=== PATIENT | female | born 1970 | race Caucasian/White ===

== ENCOUNTER 2019-12-20 09:45 | Outpatient (CLI) | payer OTHER, SELFPAY ==
--- NOTE | ~2019-12-20 | XR_ITS ---
EXAMINATION: XR shoulder RT min 2V, XR humerus RT DATE: 12/20/2019 10:13 INDICATION: Right upper arm pain TECHNIQUE: 1. AP internally and externally rotated, AP oblique externally rotated and transscapular Y views of t he right shoulder were obtained. 2. Internally and axillary rotated views of the right humerus were obtained. COMPARISON: 01/23/2019 FINDINGS: Normal alignment. No fracture. Mild glenohumeral osteoarthritis with inferior predominant nonuniform joint space narrowing which is increased since the prior study. Mild acromioclavicular osteoarthriti s with mild cephalad predominant hypertrophic change as well as small loose body versus heterotopic o ssicle at the cephalad margin of the joint space. Joint spaces at the right elbow are suboptimally pr ofiled but appear relatively preserved. Soft tissues are unremarkable. Visualized portions of the rig ht lung are clear. IMPRESSION: Mild glenohumeral and acromioclavicular osteoarthritis. No acute osseous abnormality. Reviewed, dictated and finalized at location A. IMPRESSION: Mild glenohumeral and acromioclavicular osteoarthritis. No acute osseous abnorm ality.
== END 2019-12-20 09:46 | disposition home or self-care (01) ==
PROVIDERS: PCP Nurse Practitioner Family; Visit Provider Nurse Practitioner Family
DX: S49.91XA Unspecified injury of right shoulder and upper arm, initial encounter (principal)
CPT/HCPCS: 73030; 73060

== ENCOUNTER 2019-12-26 10:51 | Outpatient (CLI) | payer OTHER, SELFPAY ==
--- NOTE | ~2019-12-26 | MR_ITS ---
EXAMINATION: MR shoulder RT wo con DATE: 12/26/2019 12:07 INDICATION: Right arm and shoulder pain TECHNIQUE: Magnetic resonance imaging (MRI) of the right shoulder was performed without intravenous c ontrast. Sequences included axial PD-weighted FS FSE, coronal oblique PD-weighted FS FSE, coronal obl ique T2-weighted FS FSE, sagittal PD-weighted FS FSE, and sagittal T1-weighted SE. COMPARISON: None. FINDINGS: Evaluation mildly limited by motion artifact or blurring to some degree on all sequences. Coracoacromial arch: The acromion undersurface is curved in morphology (type II). The coracoacromial ligament is normal. M ild acromioclavicular osteoarthritis. Rotator cuff: Mild supraspinatus and infraspinatus tendinopathy. Small full-thickness tear along the superior facet footplate of the distal supraspinatus tendon measuring 4 mm AP and 6 mm medial to lateral the teres minor tendon is normal. Mild subscapularis tendinopathy without discrete tear. Normal rotator cuff mu scle bulk and signal. Biceps tendon, glenoid labrum and glenohumeral cartilage: Full-thickness tear likely along the intra-articular portion of the long head biceps tendon with the still tear margin retracted approximately 4 cm below the level of the intertubercular groove. The sup erior labrum as well as the anteroinferior and inferior labrum appears thickened with amorphous incre ased signal consistent with degenerative tearing. The intervening anterior and posterior labrum appea rs to remain intact. Partial-thickness cartilage loss along the glenoid with small region of deep fis suring with subarticular edema along the inferior glenoid. Additional partial thickness cartilage los s without degenerative subchondral changes along the medial aspect of the humeral head. Fluid: Physiologic amount of fluid in the glenohumeral joint. There is fluid within the long head biceps ten don sheath with additional epimysial edema extending peripherally about the short head of the biceps muscle belly. No loose osteochondral bodies. Small amount of fluid and synovitis in the subacromial/s ubdeltoid bursa consistent with mild bursitis. Bones: Bone alignment is normal. No fracture or pathologic marrow replacing process. IMPRESSION: 1. Full-thickness tear and distal retraction of the intra-articular long head biceps tendon with incr eased fluid in the tendon sheath extending around the periphery of the short head of the biceps muscl e suggesting relatively recent injury. 2. Mild rotator cuff tendinopathy with small full-thickness supraspinatus tendon tear. 3. Mild glenohumeral osteoarthritis with high-grade chondromalacia at the inferior glenoid and degene rative tearing of the superior, anteroinferior and inferior glenoid labrum. 3. Mild acromioclavicular osteoarthritis. 4. Mild subacromial/subdeltoid bursitis. Reviewed, dictated and finalized at location B. IMPRESSION: 1. Full-thickness tear and distal retraction of the intra-articular long head b iceps tendon with increased fluid in the tendon sheath extending around the per iphery of the short head of the biceps muscle suggesting relatively recent inju ry. 2. Mild rotator cuff tendinopathy with small full-thickness supraspinatus tendo n tear. 3. Mild glenohumeral osteoarthritis with high-grade chondromalacia at the infer ior glenoid and degenerative tearing of the superior, anteroinferior and inferi or glenoid labrum. 3. Mild acromioclavicular osteoarthritis. 4. Mild subacromial/subdeltoid bursitis.
== END 2019-12-26 10:52 | disposition home or self-care (01) ==
LOC: CHSIMG 10:52
PROVIDERS: PCP Nurse Practitioner Family; Visit Provider Nurse Practitioner Family
DX: S49.91XA Unspecified injury of right shoulder and upper arm, initial encounter (principal); S46.219A Strain of muscle, fascia and tendon of other parts of biceps, unspecified arm, initial encounter
CPT/HCPCS: 73221

== ENCOUNTER 2020-10-25 07:52 | Outpatient (CLI) | payer OTHER, SELFPAY ==
--- NOTE | ~2020-10-25 | US_ITS ---
EXAMINATION: US abdomen limited DATE: 10/25/2020 08:18 INDICATION: Left lower quadrant abdominal pain. TECHNIQUE: Multiple grayscale and Doppler ultrasound images of the left and right lower quadrants of the abdomen were obtained. COMPARISON: None FINDINGS: At the left lower quadrant area of concern there is a 4.3 x 2.1 x 2.2 cm mixed hypoechoic and anechoi c complex cystic mass with lobular margins centered within which appears to be the left rectus abdomi nis muscle. Normal underlying peristalsing bowel in the left and right lower quadrants. IMPRESSION: 1. 4.3 x 2.1 x 2.2 cm complex cystic mass within the left rectus abdominis muscle. Differential would include hematoma, abscess in the appropriate clinical setting or neoplasm either benign or malignant . Correlate with clinical history and could consider sonographic guided percutaneous biopsy/aspiratio n as clinically indicated. Reviewed, dictated and finalized at location A. IMPRESSION: 1. 4.3 x 2.1 x 2.2 cm complex cystic mass within the left rectus abdominis musc le. Differential would include hematoma, abscess in the appropriate clinical se tting or neoplasm either benign or malignant. Correlate with clinical history a nd could consider sonographic guided percutaneous biopsy/aspiration as clinical ly indicated.
== END 2020-10-25 07:53 | disposition home or self-care (01) ==
LOC: CHSIMG 07:53
PROVIDERS: PCP Physician Assistant; Visit Provider Nurse Practitioner Family
DX: R10.32 Left lower quadrant pain (principal)
CPT/HCPCS: 76705

== ENCOUNTER 2020-11-08 10:25 | Outpatient (CLI) | payer OTHER, SELFPAY ==
--- NOTE | ~2020-11-08 | US_ITS ---
EXAMINATION: US biopsy st muscle DATE: 11/08/2020 11:02 INDICATION: Mass in left rectus abdominis muscle. TECHNIQUE: The procedure including the risks, benefits, and alternatives was discussed with the patie nt. Risks discussed included bleeding and infection. The patient understood the risks and agreed to p roceed. The skin overlying the left abdomen was prepped and draped in usual sterile fashion. Anesthe tic was administered with 1% lidocaine subcutaneously. An 18 gauge core biopsy needle was then used to obtain 3 core biopsy specimens under continuous sonographic guidance. The entry site was cleaned a nd dressed. There were no immediate complications. FINDINGS: Ultrasound images demonstrate the needle in a 3.5 cm hypoechoic mass in left rectus abdomin is muscle. IMPRESSION: 1. Ultrasound-guided core needle biopsy of a 3.5 cm mass in left rectus abdominis muscle. Reviewed, dictated and finalized at location A. IMPRESSION: 1. Ultrasound-guided core needle biopsy of a 3.5 cm mass in left rectus abdomin is muscle.
== END 2020-11-08 10:26 | disposition home or self-care (01) ==
PROVIDERS: PCP Physician Assistant; Visit Provider Physician Assistant
DX: R19.05 Periumbilic swelling, mass or lump (principal)
CPT/HCPCS: 20206; 76942; 88305; 88342

== ENCOUNTER 2020-12-06 07:39 | Outpatient (CLI) | payer OTHER, SELFPAY ==
--- NOTE | 2020-12-06 07:42 | ECG_ITS ---
Measurements Intervals Ashley Rate: 65 P: 57 OH: 143 QRS: 53 QRSD: 85 T: 11 QT: 375 QTc: 392 Interpretive Statements SINUS RHYTHM BORDERLINE R WAVE PROGRESSION, ANTERIOR LEADS NONSPECIFIC T-WAVE ABNORMALITY- INFERIOR LEADS BASELINE WANDER- V6 BORDERLINE ECG Electronically Signed On 12-06-2020 8:09:51 CDT by Federico Olvear D.O.
== END 2020-12-06 07:40 | disposition home or self-care (01) ==
LOC: ANHSURGERY 07:40
PROVIDERS: PCP Physician Assistant; Visit Provider Surgery
DX: Z01.810 Encounter for preprocedural cardiovascular examination (principal); E78.5 Hyperlipidemia, unspecified
CPT/HCPCS: 93005

== ENCOUNTER 2020-12-09 03:20 | Day surgery (SDC) | payer OTHER, SELFPAY ==
[2020-12-04 09:22] VITALS: BMI 23.6
[2020-12-09] VITALS (8 sets, daily range): BP systolic 117–149; BP diastolic 68–100; PULSE 62–71; RESP 14–18; TEMP 36.1–36.7; O2SAT 97–100; BMI 24.8
--- NOTE | 2020-12-09 11:31 | SUR.PREOP ---
1015; PT SLEEPING. 1130; PT AWAKE, CALLED TO ROOM. NOTIFIED OF 90 MINUTE DELAY.
--- NOTE | 2020-12-09 11:48 | WPDHPUPDATE1 ---
History and Physical Update Update Date/Time: 12/09/20 11:48 History and Physical has been reviewed, including an updated exam of the patient. There are NO changes in the patient's condition. Risks, benefits, and alternatives have been discussed and questions answered. Patient agrees to proceed with procedure.
--- NOTE | 2020-12-09 11:54 | WPDANESEPPF ---
Anes - Initial Pre Proc Eval Procedure: Operation Date: 12/09/20 10:30 Proposed Procedures p Excision of Left Rectus Muscle Mass - Armen Mcneill MD Date/Time: 12/09/20 11:54 Surgeon: Armen Mcneill MD Pre Op Diagnosis: Left Rectus muscle mass Patient Data Age: 50 Gender: F Height: 1.64 m Weight: 67.3 kg Last Vital Signs Temp 97.9 F 12/09/20 09:28 Pulse 68 12/09/20 09:28 Resp 18 12/09/20 09:28 BP 149/100 H 12/09/20 09:28 Pulse Ox 97 12/09/20 09:28 Allergies Allergy/AdvReac Type Severity Reaction Status Date / Time diazepam AdvReac Unknown Nausea Verified 12/09/20 08:44 Home Medications Medication Instructions Recorded Confirmed Type gabapentin 300 mg capsule 300 mg PO QID cap 06/08/19 12/09/20 History meloxicam 7.5 mg tablet 7.5 mg PO DAILY 09/18/20 12/04/20 History famotidine 10 mg tablet 10 mg PO DAILY 11/22/20 12/04/20 History oxcarbazepine 300 mg tablet 300 mg PO DAILY 11/22/20 12/09/20 History venlafaxine 150 mg 150 mg PO HS 11/22/20 12/04/20 History capsule,extended release 24 hr atorvastatin 40 mg PO DAILY 12/04/20 12/04/20 History hydroxyzine HCl 50 mg PO BID 12/04/20 12/04/20 History montelukast 10 mg PO DAILY 12/04/20 12/04/20 History omeprazole 20 mg PO DAILY 12/04/20 12/09/20 History acetaminophen [Tylenol] 325 mg PO ONCE PRN 12/09/20 12/09/20 History Patient hx anesthesia problems: none Family hx anesthesia problems: none PMFSH Past Medical History Medical History (Updated 11/26/20 @ 14:30 by Marilu Salgado) Cervical cancer Depression GERD (gastroesophageal reflux disease) History of blood clots Hypercholesterolemia Hyperlipidemia Low back pain Sleep apnea, unspecified Surgical History Surgical History (Updated 11/26/20 @ 14:30 by Marilu Salgado) H/O hemorrhoidectomy H/O inguinal hernia repair History of History of carpal tunnel surgery History of endometrial ablation Hx of hysterectomy Age 32 S/P tonsillectomy and adenoidectomy Family History Family History Father Family history of atrial fibrillation Hypertension Mother Family history of atrial fibrillation Asthma Depression Sibling Asthma Other Asthma Grandparent Cancer Hypertension Heart disease Cerebrovascular accident Grandparent Cancer Diabetes mellitus Hypertension Heart disease Other Family history of malignant neoplasm Family history of type 2 diabetes mellitus Social History Social History Social History: caffeine use: coffee Smoking status: Former smoker Tobacco type: cigarettes Smoking end date: 04/26/12 Additional smoking assessment comments: SOCIAL SMOKER 30 YRS Alcohol intake: never Substance use type: marijuana Other substance usage details: DAILY IN EVENING Living arrangements: alone 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 Questions were solicited and answers provided to the satisfaction of the patient/family/POA.
[2020-12-09] MEDS: LACTATED RINGERS 1,000 ML 30 ML IV CONT ×2 (11:57→13:46)
[2020-12-09] MEDS: BUPIVACAINE/EPINEPHRINE 0.5% 10 ML VIAL 13 ML INFILTRATE (13:37)
--- NOTE | 2020-12-09 14:03 | W.PM.PROC2 ---
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 Benign hemosiderin-laden CIS cells obtained. Description of Procedure The patient was brought to the operating room placed in supine position. After induction of adequate general LMA anesthesia by [place] anesthesia we proceeded with a careful prep and drape of abdomen in standard fashion exposing the mid abdomen. Following this time-out was performed with surgery team confirming patient and site of surgery being the mid abdominal wall. Prior to scrubbing and I carefully reviewed the ultrasound images stored in the computer patient's previous ultrasound-guided core biopsy. Following this the operative ultrasound machine was brought onto the field using the wide probe in a sterile sheath and the area marked with the patient preoperatively was carefully examined with ultrasound. Since she had previously had an ultrasound biopsy and a 3 x 2 cm mass in the Left rectus muscle a month or 2 ago, I carefully examined the area of the previous biopsy from the level of the umbilicus dowm to about 5 cm below the umbilicus thoroughly. We could nicely see subcutaneous tissues rectus sheath the interposed muscle and also see some peristalsing bowel inferior to the posterior rectus sheath. The only lesion that could be seen with in the rectus muscle in this area, was then carefully marked by placing a little bit of local anesthetic into the skin followed by a 22 gauge needle not on a syringe inserted by US guidance extending it's tip down and into the suspected lesion. We watched this go from the skin slightly inferior to the lesion through the subcutaneous tissues and into the apparent mass noted on intraoperative ultrasound. Then I put the ultrasound probe away and I instilled more local along the proposed line of incision. I then made an incision slightly superior to the entry site of the 22 gauge needle. This was about 6 - 7 cm in length transversely and was approximately 3-4 cm inferior to the level of the umbilicus. It was carried down with Bovie cautery through the subcutaneous tissues until we exposed the anterior rectus sheath. I could then see a little bit of the needle coming through the subcutaneous tissues and entering the anterior rectus fascia. I then made an incision in the anterior rectus fascia and followed the needle into the muscle itself. There was no easily palpable mass within the muscle at the tip of the needle. All the tissue at the tip including some muscle was grasped with 2 Allis's and excised. It appeared to be fibrotic scar. I then carefully elevated the anterior rectus sheath in both directions and palpated the rectus muscle for 3 cm above and 3 cm below the site of this excision. No other palpable masses were found within the muscle or beneath muscle along the posterior rectus sheath. There was a small muscular arterial bleeder that would not stop with just cautery so I then obtained and used some small vascular titanium clips to stop the bleeding. Therefore, after the above exploration, I felt I had thoroughly explored the Left rectus sheath in the area of the suspected abnormality. There is the possibility that the lesion seen previously on ultrasound and biopsied has scarred in further and is now not as large as it was originally or when biopsied a couple of months ago. During the excision, in order to be able to tell in the future by imaging where I did the excision, I used some of the small titanium clips and outlined the the area of excision by placing 2 or 3 within the left rectus mus
[2020-12-09] MEDS: fentaNYL CITRATE INJ (*CRX) 100 MCG/2 ML VIAL 25 MCG IV PUSH ×2 (14:25→14:31)
== END 2020-12-09 15:26 | disposition home or self-care (01) ==
PROVIDERS: PCP Physician Assistant; Visit Provider Surgery
PROC: (CPT 22901; principal; 2020-12-09 10:30)
DX: M79.89 Other specified soft tissue disorders (principal); Z85.41 Personal history of malignant neoplasm of cervix uteri; F32.9 Major depressive disorder, single episode, unspecified; K21.9 Gastro-esophageal reflux disease without esophagitis; E78.5 Hyperlipidemia, unspecified; E78.00 Pure hypercholesterolemia, unspecified; G47.30 Sleep apnea, unspecified; Z87.891 Personal history of nicotine dependence; F12.90 Cannabis use, unspecified, uncomplicated; Z86.718 Personal history of other venous thrombosis and embolism
CPT/HCPCS: 22901; 76937; 88304; J1100; J2250; J2405; J2704; J3010; J7120

== ENCOUNTER 2020-12-25 07:40 | Outpatient (CLI) | payer OTHER, SELFPAY ==
--- NOTE | ~2020-12-25 | MM_ITS ---
EXAMINATION: MM screening [facility] w [facility] HISTORY: Screening TECHNIQUE: Craniocaudal and mediolateral oblique 3-D tomosynthesis images were obtained and synthetic 2-D images were generated. CAD analysis was submitted and interpreted. COMPARISON: No prior mammogram is available for comparison at this institution. BREAST PARENCHYMAL COMPOSITION: The breasts are extremely dense, which lowers the sensitivity of mamm ography. FINDINGS: There is no evidence of suspicious mass, calcification, or architectural distortion to sugg est malignancy in either breast. There has been no suspicious interval change. IMPRESSION: 1. No mammographic evidence of malignancy. 2. Recommend routine screening mammography in one year. BI-RADS Category 1: Negative Reviewed, dictated and finalized at location A.
== END 2020-12-25 07:41 | disposition home or self-care (01) ==
LOC: ANHIMG 07:41
PROVIDERS: PCP Physician Assistant; Visit Provider Obstetrics & Gynecology
DX: Z12.31 Encounter for screening mammogram for malignant neoplasm of breast (principal)
CPT/HCPCS: 77063; 77067

== ENCOUNTER 2021-03-16 11:56 | Emergency (ER) | payer OTHER, SELFPAY ==
--- NOTE | ~2021-03-16 | US_ITS ---
EXAMINATION: US venous doppler [facility] EXAM DATE: 03/16/2021 14:24 INDICATION: Left leg swelling. TECHNIQUE: Multiple grayscale, color flow and Doppler images of the left lower extremity deep venous system were obtained and reviewed. There is no prior study for comparison. FINDINGS: The left common femoral, femoral and profunda veins demonstrate normal color flow, respirat ory variation, augmentation and compressibility. Compressibility, color flow confirmed within the le ft popliteal, posterior tibial, peroneal, and greater saphenous veins. IMPRESSION: 1. No left lower extremity deep venous thrombosis. 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
[2021-03-16 12:07] VITALS: BP 136/79; PULSE 76; RESP 16; TEMP 36.4; O2SAT 100
--- NOTE | 2021-03-16 13:31 | ED.LOWEXIN ---
HPI - Extremity Injury (Lower) General Chief Complaint: Extremity Injury, Lower Stated Complaint: left leg is purplex 4 days Time Seen by Provider: 03/16/21 13:26 Source: patient Mode of arrival: ambulatory Limitations: no limitations History of Present Illness HPI Narrative: Patient is a 51-year-old female complaining of left leg swelling that started yesterday. Patient states that initially he had left knee with swelling which is now resolved and today her left leg is swelling. Patient states that she was on her knees for a little more than an hour yesterday, painting. 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 Patient denies any injury to the area. Patient denies cold extremity. Patient denies any chest pain, shortness of breath, fever or chills. Related Data Home Medications Medication Instructions Recorded Confirmed gabapentin 300 mg capsule 300 mg PO QID cap 06/08/19 12/09/20 meloxicam 7.5 mg tablet 7.5 mg PO DAILY 09/18/20 12/04/20 famotidine 10 mg tablet 10 mg PO DAILY 11/22/20 12/04/20 oxcarbazepine 300 mg tablet 300 mg PO DAILY 11/22/20 12/09/20 venlafaxine 150 mg 150 mg PO HS 11/22/20 12/04/20 capsule,extended release 24 hr atorvastatin 40 mg PO DAILY 12/04/20 12/04/20 hydroxyzine HCl 50 mg PO BID 12/04/20 12/04/20 montelukast 10 mg PO DAILY 12/04/20 12/04/20 omeprazole 20 mg PO DAILY 12/04/20 12/09/20 acetaminophen [Tylenol] 325 mg PO ONCE PRN 12/09/20 12/09/20 Allergies Allergy/AdvReac Type Severity Reaction Status Date / Time diazepam AdvReac Unknown Nausea Verified 03/16/21 12:09 Review of Systems Review of Systems: All systems reviewed & are unremarkable except as noted in HPI and below Constitutional: Constitutional: Denies body ache(s), Denies chills, Denies excessive sweating, Denies fatigue, Denies fever(s), Denies headache(s), Denies lethargy, Denies malaise, Denies weakness and Denies weight loss Eyes: Eyes: Denies blurry vision, Denies change in vision and Denies loss of vision ENT: Denies dizziness, Denies ear discharge, Denies headache(s), Denies lip swelling, Denies epistaxis, Denies nasal congestion, Denies neck pain, Denies throat swelling and Denies tongue swelling Cardiovascular: Cardiovascular: Denies chest pain, Denies chest pain at rest, Denies chest pain with activity, Denies diaphoresis, Denies rapid heart rate, Denies edema, Denies irregular heart rhythm, Denies lightheadedness, Denies palpitations, Denies dyspnea and Denies dyspnea on exertion Respiratory: Respiratory: Denies chest congestion, Denies cough, Denies hemoptysis, Denies dyspnea and Denies dyspnea on exertion Gastrointestinal: Gastrointestinal: Denies abdominal pain, Denies melena, Denies hematochezia, Denies diarrhea, Denies nausea, Denies vomiting and Denies hematemesis Musculoskeletal: Musculoskeletal: Denies abnormal gait, Denies deformity, Denies joint swelling, Denies limited range of motion, Denies neck pain and Denies numbness Neurologic: Denies Abnormal speech present, Denies abnormal gait, Denies confusion, Denies dizziness, Denies headache(s), Denies focal weakness, Denies loss of vision, Denies numbness, Denies Other visual disturbances, Denies Sensory deficit (Neuro) and Denies weakness Psychiatric: Psychiatric: Denies confusion, Denies depression, Denies auditory hallucinations, Denies homicidal ideation and Denies suicidal ideation Endocrine: Endocrine: Denies cold intolerance, Denies excessive sweating, Denies fatigue, Denies heat intolerance and Denies palpitations Hematologic/Lymphatic: Hematologic/Lymphatic: Denies easy bleeding and Denies easy bruising Allergic/Immunologic: Allergic/Immunologic: Denies lip swelling, Denies throat swelling and Denies tongue swelling PMFSH Past Medical History Medical History Cervical cancer Depression GERD (gastroesophageal reflux disease) History of blood clots Hypercholesterolemi
[2021-03-16 14:00] LABS: Basophils Percent Auto 0.5 % (0.2-1.2); Eosinophils Absolute Auto 0.1 K/mm3 (0-0.3); Eosinophils Percent Auto 0.6 % (0-4.4); Hematocrit 39.4 % (37.0-47.0); Hemoglobin 13.4 g/dL (12.0-15.0); Immature Granulocyte Absolute 0.02 K/mm3 (0.00-0.031); Immature Granulocyte Percent A 0.2 % (0-0.5); Lymphocytes Absolute Auto 2.14 K/mm3 (0.9-3.2); Lymphocytes Percent Auto 25.4 % (18.3-44.2); Mean Corpuscular Hemoglobin 31.8 pg (26-34); Mean Corpuscular Volume 93.4 fl (80-100); Monocytes Absolute Auto 0.6 K/mm3 (0.1-0.6); Monocytes Percent Auto 6.7 % (2.6-8.5); Neutrophils Absolute Auto 5.6 K/mm3 (1.3-6.7); Neutrophils Percent Auto 66.6 % (45.5-73.1); Platelet Count Result 307 k/mm3 (150-375); Red Blood Count 4.22 M/mm3 (4.2-5.4); Red Cell Distribution Width 13.2 % (11.5-14.5); White Blood Count 8.4 K/mm3 (4.5-10.0)
[2021-03-16 14:01] VITALS: BP 146/113; PULSE 74; RESP 16; O2SAT 99
[2021-03-16 14:16] LABS: Alanine Aminotransferase 37 U/L (4-35); Albumin Level 4.1 g/dL (3.5-5.1); Alkaline Phosphatase 51 U/L (38-126); Anion Gap 5 mmol/L (8-16); Aspartate Amino Transferase 44 U/L (14-36); Bilirubin,Total 0.4 mg/dL (0.2-1.3); Blood Urea Nitrogen 20 mg/dL (7-17); Calcium 9.2 mg/dL (8.4-10.2); Carbon Dioxide 28 mmol/L (22-30); Chloride 101 mmol/L (98-107); Estimated CRCL calculation 75 ml/min; Estimated Glomerular Filt Rate > 60; Glucose 91 mg/dL (65-110); Potassium 4.1 mmol/L (3.4-5.0); Sodium 134 mmol/L (137-145)
[2021-03-16 15:02] VITALS: BP 146/90; PULSE 82; RESP 16; O2SAT 100
== END 2021-03-16 15:13 | disposition home or self-care (01) ==
PROVIDERS: Emergency Provider Emergency Medicine; PCP Physician Assistant
DX: M79.89 Other specified soft tissue disorders (principal); E78.5 Hyperlipidemia, unspecified; G47.30 Sleep apnea, unspecified; K21.9 Gastro-esophageal reflux disease without esophagitis; F32.A Depression, unspecified; Z85.41 Personal history of malignant neoplasm of cervix uteri; Z87.891 Personal history of nicotine dependence
CPT/HCPCS: 36415; 80053; 85025; 93971; 99284

== ENCOUNTER 2021-04-11 10:50 | Outpatient (CLI) | payer OTHER, SELFPAY ==
--- NOTE | ~2021-04-11 | XR_ITS ---
EXAMINATION: XR knee LT 3V DATE: 04/11/2021 11:04 INDICATION: Left knee pain and swelling TECHNIQUE: Three views of the left knee were obtained. COMPARISON: None. FINDINGS: Alignment is normal. No fracture or osteochondral lesion. There is mild tricompartmental os teoarthritis characterized by tiny marginal osteophytes. No joint effusion/synovitis. Soft tissues a re unremarkable. IMPRESSION: 1. Mild osteoarthritis Reviewed, dictated and finalized at location A. 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 Mild osteoarthritis
== END 2021-04-11 10:51 | disposition home or self-care (01) ==
LOC: CHSIMG 10:51
PROVIDERS: PCP Physician Assistant; Visit Provider Physician Assistant
DX: M25.562 Pain in left knee (principal)
CPT/HCPCS: 73562

== ENCOUNTER 2022-10-23 13:11 | Outpatient (CLI) | payer OTHER, SELFPAY ==
--- NOTE | ~2022-10-23 | MM_ITS ---
EXAMINATION: MM screening [facility] BI w [facility] HISTORY: Screening mammogram TECHNIQUE: Craniocaudal and mediolateral oblique 3-D tomosynthesis images were obtained and synthetic 2-D images were generated. CAD analysis was submitted and interpreted. COMPARISON: 12/25/2020 bilateral screening mammogram BREAST PARENCHYMAL COMPOSITION: There are scattered areas of fibroglandular density. FINDINGS: There is no evidence of suspicious mass, calcification, or architectural distortion to sugg est malignancy in either breast. There has been no suspicious interval change. IMPRESSION: 1. No mammographic evidence of malignancy. 2. Recommend routine screening mammography in one year. BI-RADS Category 1: Negative Reviewed, dictated and finalized at location A.
== END 2022-10-23 13:12 | disposition home or self-care (01) ==
LOC: CHSIMG 13:13
PROVIDERS: PCP Physician Assistant; Visit Provider Physician Assistant
DX: Z12.31 Encounter for screening mammogram for malignant neoplasm of breast (principal)
CPT/HCPCS: 77063; 77067

== ENCOUNTER 2023-01-13 10:46 | Emergency (ER) | payer OTHER, SELFPAY ==
[2023-01-13 10:47] VITALS: BP 126/91; PULSE 80; RESP 19; TEMP 36.7; O2SAT 99
--- NOTE | 2023-01-13 10:55 | ED.GENADULT ---
HPI - General Adult General Chief complaint: Unspecified Stated complaint: Blood Pressure Time Seen by Provider: 01/13/23 10:54 Source: patient and RN notes reviewed Mode of arrival: ambulatory Limitations: no limitations History of Present Illness HPI narrative: patient states she has had some episodes of dizziness since yesterday. She was moving a ladder and became short of breath. She has some occasional nausea headache. She says she just does not feel right . Her blood pressure has been elevated mostly diastolic. She brings in pictures of the blood pressure cuff that she has been using with the readings on it. She does take losartan for her high blood pressure. She denies any fever chills or cough. She denies any chest pain lower extremity calf pain. She just wants to be checked out make sure everything is okay. Onset (ago): day(s) (2) Associated symptoms: headaches, malaise, nausea/vomiting ( no vomiting), shortness of breath ( With exertion) and other ( dizziness) Treatments prior to arrival: none Related Data Home Medications Medication Instructions Recorded Confirmed gabapentin 300 mg capsule 300 mg PO QID 06/08/19 01/13/23 meloxicam 7.5 mg tablet 7.5 mg PO DAILY 09/18/20 01/13/23 famotidine 10 mg tablet 10 mg PO DAILY 11/22/20 01/13/23 oxcarbazepine 300 mg tablet 300 mg PO DAILY 11/22/20 01/13/23 venlafaxine 150 mg 150 mg PO HS 11/22/20 01/13/23 capsule,extended release 24 hr (Effexor XR) atorvastatin 40 mg tablet 40 mg PO DAILY 12/04/20 01/13/23 hydroxyzine HCl 50 mg tablet 50 mg PO BID 12/04/20 01/13/23 montelukast 10 mg tablet 10 mg PO DAILY 12/04/20 01/13/23 omeprazole 20 mg capsule,delayed 20 mg PO DAILY 12/04/20 01/13/23 release acetaminophen 325 mg capsule 325 mg PO ONCE PRN pain 12/09/20 01/13/23 (Tylenol) Allergies Allergy/AdvReac Type Severity Reaction Status Date / Time diazepam AdvReac Unknown Nausea Verified 03/16/21 12:09 [facility] Past Medical History Medical History Cervical cancer Depression GERD (gastroesophageal reflux disease) History of blood clots Hypercholesterolemia Hyperlipidemia Low back pain Sleep apnea, unspecified Surgical History Surgical History H/O hemorrhoidectomy H/O inguinal hernia repair History of History of carpal tunnel surgery History of endometrial ablation Hx of hysterectomy Age 32 S/P tonsillectomy and adenoidectomy Family History Family History Father Family history of atrial fibrillation Hypertension Mother Family history of atrial fibrillation Asthma Depression Sibling Asthma Other Asthma Grandparent Cancer Hypertension Heart disease Cerebrovascular accident Grandparent Cancer Diabetes mellitus Hypertension Heart disease Other Family history of malignant neoplasm Family history of type 2 diabetes mellitus Social History Social History Social History: caffeine use: coffee Smoking status: Former smoker Tobacco type: cigarettes Smoking end date: 04/26/12 Additional smoking assessment comments: SOCIAL SMOKER 30 YRS Alcohol intake: never Substance use type: marijuana Other substance usage details: DAILY IN EVENING Living arrangements: alone Occupation/Education: occupation 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 HENMT: Head: normal to inspection Ears: external ears normal Face/Nose/Sinus: Normal external nose present Face and sinus: normal facial exam Mouth: Yes moist mucous membranes Eyes: Conjuncti
--- NOTE | 2023-01-13 11:09 | ECG_ITS ---
Measurements Intervals [employer] Rate: 60 P: 47 NM: 161 QRS: 38 QRSD: 78 T: 11 QT: 387 QTc: 389 Interpretive Statements SINUS RHYTHM BORDERLINE R WAVE PROGRESSION, ANTERIOR LEADS MINIMAL Q WAVES- INFERIOR LEADS BORDERLINE ST-T WAVE ABNORMALITY- INFERIOR LEADS BORDERLINE ECG COMPARED TO ECG 12/06/2020 07:53:52 NO SIGNIFICANT CHANGES Electronically Signed On 01-13-2023 11:25:30 CDT by Federico Olvera D.O.
[2023-01-13 11:25] LABS: Basophils Absolute Auto 0.04 K/mm3 (0.00-0.10); Basophils Percent Auto 0.6 % (0.0-1.0); Eosinophils Absolute Auto 0.05 K/mm3 (0.02-0.50); Eosinophils Percent Auto 0.7 % (1.0-6.0); Hematocrit 44.3 % (35.0-49.0); Hemoglobin 14.7 g/dL (12.0-15.0); Immature Granulocyte Absolute 0.02 K/mm3 (0.00-0.00); Immature Granulocyte Percent A 0.3 % (0.0-0.0); Lymphocytes Absolute Auto 2.22 K/mm3 (1.10-4.50); Lymphocytes Percent Auto 32.2 % (18.0-42.0); Mean Corpuscular HGB Conc 33.2 g/dL (32.0-36.0); Mean Corpuscular Hemoglobin 30.5 pg (27.0-31.0); Mean Corpuscular Volume 91.9 fL (78.0-102.0); Mean Platelet Volume 9.4 fl (9.2-11.8); Monocytes Absolute Auto 0.43 K/mm3 (0.10-0.90); Monocytes Percent Auto 6.2 % (2.0-11.0); Neutrophils Absolute Auto 4.1 K/mm3 (1.7-7.2); Platelet Count Result 346 K/mm3 (150-420); Red Blood Count 4.82 M/mm3 (4.20-5.40); Red Cell Distribution Width 12.7 % (11.6-14.4); White Blood Count 6.9 K/mm3 (4.8-10.8)
[2023-01-13 11:44] VITALS: BP 119/93; PULSE 64; RESP 20; O2SAT 95
[2023-01-13 11:52] LABS: Influenza A QL RT-PCR Negative (Negative); Influenza B QL RT-PCR Negative (Negative); SARS-CoV-2 RNA PCR Negative (Negative)
[2023-01-13 11:53] LABS: Alanine Aminotransferase 26 U/L (14-59); Albumin Level 3.9 g/dL (3.4-5.0); Alkaline Phosphatase 45 U/L (46-116); Anion Gap 8 mmol/L (8-16); Aspartate Amino Transferase 16 U/L (15-37); Bilirubin,Total 0.3 mg/dL (0.00-1.00); Blood Urea Nitrogen 22 mg/dL (7-18); Calcium 9.6 mg/dL (8.5-10.1); Carbon Dioxide 29 mmol/L (21-32); Chloride 101 mmol/L (98-108); Estimated CRCL calculation 93 ml/min; Estimated Glomerular Filt Rate > 60; Glucose 93 mg/dL (70-99); Magnesium 1.9 mg/dL (1.8-2.4); Osmolality Calculated 289 mOsm/kg (285-295); Potassium 4.2 mmol/L (3.5-5.1); Sodium 138 mmol/L (136-145); Thyroid Stimulating Hormone 0.98 uIU/mL (0.36-3.74); Total Protein 7.1 g/dL (6.4-8.2); Troponin I < 4.0 ng/L (0.00-60.4)
--- NOTE | 2023-01-13 12:46 | PC.NURSE ---
call to pt,updated on labs encouraged to followup with [facility]. voiced understanding
== END 2023-01-13 11:45 | disposition left against medical advice (07) ==
PROVIDERS: Emergency Provider Emergency Medicine; PCP Physician Assistant
DX: R42 Dizziness and giddiness (principal); E78.5 Hyperlipidemia, unspecified; Z79.1 Long term (current) use of non-steroidal anti-inflammatories (NSAID); Z79.899 Other long term (current) drug therapy; Z87.891 Personal history of nicotine dependence; Z20.822 Contact with and (suspected) exposure to COVID-19
CPT/HCPCS: 36415; 80053; 83735; 84443; 84484; 85025; 87636; 93005; 99284

== ENCOUNTER 2024-02-05 06:18 | Emergency (ER) | payer OTHER, SELFPAY ==
[2024-02-05 06:22] VITALS: BP 121/55; PULSE 75; RESP 18; TEMP 35.2; O2SAT 99
--- NOTE | 2024-02-05 06:23 | ED.GENADULT ---
HPI - General Adult General Chief complaint: Wound/Laceration Stated complaint: laceration Time Seen by Provider: 02/05/24 06:23 Related Data Home Medications Medication Instructions Recorded Confirmed gabapentin 300 mg capsule 300 mg PO QID 06/08/19 02/05/24 meloxicam 7.5 mg tablet 7.5 mg PO DAILY 09/18/20 02/05/24 famotidine 10 mg tablet 10 mg PO DAILY 11/22/20 02/05/24 oxcarbazepine 300 mg tablet 300 mg PO DAILY 11/22/20 02/05/24 venlafaxine 150 mg 150 mg PO HS 11/22/20 02/05/24 capsule,extended release 24 hr (Effexor XR) atorvastatin 40 mg tablet 40 mg PO DAILY 12/04/20 02/05/24 hydroxyzine HCl 50 mg tablet 50 mg PO BID 12/04/20 02/05/24 montelukast 10 mg tablet 10 mg PO DAILY 12/04/20 02/05/24 omeprazole 20 mg capsule,delayed 20 mg PO DAILY 12/04/20 02/05/24 release acetaminophen 325 mg capsule 325 mg PO ONCE PRN pain 12/09/20 02/05/24 (Tylenol) losartan 100 mg tablet 100 mg PO DAILY 07/29/23 02/05/24 Allergies Allergy/AdvReac Type Severity Reaction Status Date / Time diazepam AdvReac Unknown Nausea Verified 07/29/23 13:49 [facility] Past Medical History Medical History Cervical cancer Depression GERD (gastroesophageal reflux disease) History of blood clots Hypercholesterolemia Hyperlipidemia Low back pain Sleep apnea, unspecified Surgical History Surgical History H/O hemorrhoidectomy H/O inguinal hernia repair History of History of carpal tunnel surgery History of endometrial ablation Hx of hysterectomy Age 32 S/P tonsillectomy and adenoidectomy Family History Family History Father Family history of atrial fibrillation Hypertension Mother Family history of atrial fibrillation Asthma Depression Sibling Asthma Other Asthma Grandparent Cancer Hypertension Heart disease Cerebrovascular accident Grandparent Cancer Diabetes mellitus Hypertension Heart disease Other Family history of malignant neoplasm Family history of type 2 diabetes mellitus Social History Social History Social History: caffeine use: coffee Smoking status: Current some day smoker Tobacco type: cigarettes and e-cigarettes/vaping Smoking end date: 04/26/12 Additional smoking assessment comments: SOCIAL SMOKER 30 YRS Alcohol intake: never Substance use type: marijuana Other substance usage details: DAILY IN EVENING Living arrangements: alone Occupation/Education: occupation 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 Course Vital Signs Vital signs: Vital Signs Temperature 35.2 C L 02/05/24 06:22 Pulse Rate 75 02/05/24 06:22 Respiratory Rate 18 02/05/24 06:22 Blood Pressure 121/55 L 02/05/24 06:22 Pulse Oximetry 99 02/05/24 06:22 Oxygen Delivery Room Air 02/05/24 06:22 Temperature 36.7 C 02/05/24 09:20 Pulse Rate 70 02/05/24 09:20 Respiratory Rate 17 02/05/24 09:20 Blood Pressure 167/97 H 02/05/24 09:20 Pulse Oximetry 100 02/05/24 09:20 Oxygen Delivery Room Air 02/05/24 09:20 Medical Decision Making Vital Signs Vital Signs: Vital Signs Temperature 35.2 C L 02/05/24 06:22 Pulse Rate 75 02/05/24 06:22 Respiratory Rate 18 02/05/24 06:22 Blood Pressure 121/55 L 02/05/24 06:22 Pulse Oximetry 99 02/05/24 06:22 Oxygen Delivery Room Air 02/05/24 06:22 Temperature 36.7 C 02/05/24 09:20 Pulse Rate 70 02/05/24 09:20 Respiratory Rate 17 02/05/24 09:20 Blood Pressure 167/97 H 02/05/24 09:20 Pulse Oximetry 100 02/05/24 09:20 Oxygen Delivery Room Air 02/05/24 09:20 Discharge Plan Discharge Clinical Impression: Laceration of forearm, left, Left forearm pain Patient Disposition: Acute Care Hospital Condition: Stable Prescrip
[2024-02-05] MEDS: KETOROLAC 30 MG/ML VIAL (*BKC) IM (06:50)
[2024-02-05] MEDS: TETANUS,DIPHTHERIA,AC PERTUSSIS ADULT 0.5 ML (ADACEL) IM (06:54)
[2024-02-05 07:30] VITALS: BP 151/95; PULSE 85; RESP 17; O2SAT 100
[2024-02-05] MEDS: ceFAZolin 2 GM/NS 50 ML 2 GM/50 ML BAG IVPB (07:32)
--- NOTE | 2024-02-05 07:45 | PC.NURSE ---
Patient refuses to keep blood pressure cuff on.
--- NOTE | 2024-02-05 07:53 | ED.WOUNDLAC ---
HPI - Wound/Laceration General Chief Complaint: Wound/Laceration Stated Complaint: laceration Time Seen by Provider: 02/05/24 06:23 Source: patient Mode of arrival: ambulatory Limitations: no limitations History of Present Illness HPI narrative: This is a 53-year-old female, with history hypertension, who presents to the emergency department in with a laceration of the left forearm. 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 She complains of 6/10 sharp and burning pain. She denies suicidal homicidal ideations. She has no other complaints at this time. Related Data Home Medications Medication Instructions Recorded Confirmed gabapentin 300 mg capsule 300 mg PO QID 06/08/19 02/05/24 meloxicam 7.5 mg tablet 7.5 mg PO DAILY 09/18/20 02/05/24 famotidine 10 mg tablet 10 mg PO DAILY 11/22/20 02/05/24 oxcarbazepine 300 mg tablet 300 mg PO DAILY 11/22/20 02/05/24 venlafaxine 150 mg 150 mg PO HS 11/22/20 02/05/24 capsule,extended release 24 hr (Effexor XR) atorvastatin 40 mg tablet 40 mg PO DAILY 12/04/20 02/05/24 hydroxyzine HCl 50 mg tablet 50 mg PO BID 12/04/20 02/05/24 montelukast 10 mg tablet 10 mg PO DAILY 12/04/20 02/05/24 omeprazole 20 mg capsule,delayed 20 mg PO DAILY 12/04/20 02/05/24 release acetaminophen 325 mg capsule 325 mg PO ONCE PRN pain 12/09/20 02/05/24 (Tylenol) losartan 100 mg tablet 100 mg PO DAILY 07/29/23 02/05/24 Allergies Allergy/AdvReac Type Severity Reaction Status Date / Time diazepam AdvReac Unknown Nausea Verified 07/29/23 13:49 Review of Systems Review of Systems: All systems reviewed & are unremarkable except as noted in HPI and below PMFSH Past Medical History Medical History Cervical cancer Depression GERD (gastroesophageal reflux disease) History of blood clots Hypercholesterolemia Hyperlipidemia Low back pain Sleep apnea, unspecified Surgical History Surgical History H/O hemorrhoidectomy H/O inguinal hernia repair History of History of carpal tunnel surgery History of endometrial ablation Hx of hysterectomy Age 32 S/P tonsillectomy and adenoidectomy Family History Family History Father Family history of atrial fibrillation Hypertension Mother Family history of atrial fibrillation Asthma Depression Sibling Asthma Other Asthma Grandparent Cancer Hypertension Heart disease Cerebrovascular accident Grandparent Cancer Diabetes mellitus Hypertension Heart disease Other Family history of malignant neoplasm Family history of type 2 diabetes mellitus Social History Social History Social History: caffeine use: coffee Smoking status: Current some day smoker Tobacco type: cigarettes and e-cigarettes/vaping Smoking end date: 04/26/12 Additional smoking assessment comments: SOCIAL SMOKER 30 YRS Alcohol intake: never Substance use type: marijuana Other substance usage details: DAILY IN EVENING Living arrangements: alone Occupation/Education: occupation 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 HEAD: Normocephalic, atraumatic. EYES: PERRLA and EOMI. CHEST: Clear to auscultation. No respiratory distress. No wheezes rales or rhonchi HEART: Regular rate and rhythm. No murmur heard. Normal peripheral pulses. EXTREMITIES: There is a 5 cm wide, transverse laceration over the anterior mid shaft forearm with exposed muscle belly. Bleeding is controlled. There is no visible foreign body. The patient has reduced flexion strength in the 3rd 4th and 5th digits in the left hand compared to the right. Range o
[2024-02-05 08:45] VITALS: BP 167/97; PULSE 70; RESP 17; TEMP 36.7; O2SAT 100
[2024-02-05 09:20] VITALS: BP 167/97; PULSE 70; RESP 17; TEMP 36.7; O2SAT 100
== END 2024-02-05 09:20 | disposition short-term general hospital (02) ==
PROVIDERS: Emergency Provider Preventive Medicine Aerospace Medicine
DX: S51.812A Laceration without foreign body of left forearm, initial encounter (principal); E78.5 Hyperlipidemia, unspecified; I10 Essential (primary) hypertension; F17.290 Nicotine dependence, other tobacco product, uncomplicated; Z79.1 Long term (current) use of non-steroidal anti-inflammatories (NSAID); Z79.899 Other long term (current) drug therapy; Z23 Encounter for immunization; W26.0XXA Contact with knife, initial encounter
CPT/HCPCS: 90471; 90715; 96365; 96372; 99285; J0690; J1885

== ENCOUNTER 2024-11-08 16:03 | Outpatient (CLI) | payer MEDICAID, SELFPAY ==
--- NOTE | ~2024-11-08 | XR_ITS ---
EXAMINATION: XR abdomen obstructive series DATE: 11/08/2024 16:39 INDICATION: Constipation TECHNIQUE: Supine and upright views of the abdomen. FINDINGS: The visualized lung parenchyma is normal.. There is a nonobstructive bowel gas pattern. Gas and stool are seen throughout the colon to the level of the rectum. There is no free air. There are 5 metalli c rings in the colon. Moderate colonic fecal loading. IMPRESSION: 1. No acute abdominal abnormality. Reviewed, dictated and finalized at location B.
--- OUTSIDE RECORDS SUMMARY | 2024-11-08 16:09 | XMS_ITS | Continuity of Care Document ---
Author Organization [facility] Address [address] [place] [address] Phone Care Team Providers Care Head Grinder Name Role Phone Ramakrishna Coyle MD Unavailable Unavailable Allergies, Adverse Reactions, Alerts Substance Reaction Status Criticality No Known Allergies Active No Inform ation Medications Medication Instructions Dosage Effective Dates (start - stop) Status Comments Lamisil 250 mg tablet take 1 tablet by o ral route every day - Active Zocor 20 mg tablet take 1 tablet by ora l route every day in the evening 20 MG - Active Procedures Procedure Date OFFICE/OUTPATIENT VISIT, EST OFFICE/OUTPATIENT VISIT, EST PREV VISIT, NEW, AGE 40-64 OFFICE/OUTPATIENT VISIT, NEW Advance Directives Directive Yes / No Effective Date File Name No Information Encounters Encounter Description Practice Location Reason(s) For Visit Diagnoses Date Provider Providers Copied on Encounter [facility], [address] [place], [place], [id number], tel:[phone] [facility] No Information 6 Leonides Durbin. [address] [facility] [place] [place] [id number] , [place]. tel:[phone] Referring Provider: Ramakrishna Coyle, [address], [place], [place], [id number]. tel:[phone] OFFICE/OUTPA TIENT VISIT, EST [facility], [address] [place], [place], [id number], tel:[phone] [facility] back pain1 (chief complaint) nail fungus (chief complaint) HLP (chief complaint) LFT (chief complaint) Liver diseaseDermatophyto sis of nailLumbagoMixed hyperlipidemia 6 Leonides Durbin. [address], [place], [place], [id number] , [place]. [phone] Referring Provider: Ramakrishna Coyle, [address], [place], [place], [id number]. tel:[phone] OFFICE/OUTPA TIENT VISIT, [facility], [address], [place], [place], [id number], [place] tel:[phone] [facility] Nail fungus1 (chief complaint) HLP (chief complaint) rectal bleeding (chief complaint) LFT (chief complaint) Liver diseaseHyperlipidem iaDermatophytosis of nailOccult blood in stool 6 Leonides Durbin. [address], [place], [place], [address] , [place]. [phone] Referring Provider: Partha Zimmer [address], [place], [place], [id number]. tel:[phone] PREV VISIT, NEW, AGE 40-64 [facility], [address], [place], [place], [address], [place] [phone] [facility] PHysical (chief complaint) Encounter for general adult medical exam w abnormal findingsCarpal tunnel syndrome, left upper limbOccult blood in stoolDermatophytosi s of nail 6 Leonides Durbin. [address], [address], [place], [place], [address] , [place]. [phone] Referring Provider: Partha Zimmer [address], [place], [place], [address]. tel:[phone] Family History Family Member Type Diagnosis Age At Onset Mother Problem (finding) afib,. sleep apnea Brother Problem (finding) of gun shot wound Brother Problem (finding) Father Problem (finding) afib Payers Payer name Insurance type Covered democrat ID Bonita[place] tialejandra(s) No Information Social History Type Description Quantity Date Captured Comments Alcohol Use Details Unknown Caffeine Use Details Unknown Tobacco Use Status Smoking Status No Information Sex Female Chief Complaint And Reason For Visit No Information Plan Of Treatment Date Type Action Status Referral Ordered: Physical Therapy (related to Lumbago) ordered Referral Referred To: Physical Therapy Ordered: Referrals: Physical Therapy. Evaluate and treat ordered Referral Ordered: LUMBAR XRAY AP AND LAT ONLY ordered Referral Ordered: US EXAM, ABDOM, COMPLETE ordered Referral Ordered: Tommy Rowell (related to Carpal tunnel syndrome, left upper limb) ordered Referral Ordered: MAMMOGRAM, SCREENING ordered Referral Ordered: COLONOSCOPY AND BIOPSY ordered Referral Referred To: Tommy Rowell [address] [place], [phone] Ordered: Referrals: Tommy Rowell. Evaluate and treat ordered History Of Present Illness Encounter Date Complaint History Of Prese nt Illness back pain1 Pt has chronic l ow back painr multiple years but seems worse during last two months. Pt denies any injury Pt denies any sciatica. Pt denies any numbness. Pt also has hip pain for at least several years. Pt states that she has constant pain right lower back, which is sharp in nature. Pt states taht her pain is around 8/10 pain. Pt states that the pain is worse with walking. Pt denies any loss of bowel or bladder control nail fungus Pt has right ruben e foot nail fungus. Pt failed OTC meds. No pain HLP Pt has HLP. Pt i s on atkins diet. Pt unable to lower her meat intake LFT Pt had normal ab d ultraosund and repeat LFT is ok. Pt denies any abd pain or any jaundice Nail fungus1 Pt has bilateral toenail fungus. Pt wants to try lamisil. Pt wants to be able to wear sandles in the summer time HLP Pt is on atkins diet. Pt only eats meat and egg, etc. Pt does not eat any carbs. Pt wants to lose weight rectal bleeding Additional infor aristeo: Pt has intermittent bright red blood per rectum Pt has appointment with GI in two weeks. Pt denies any abd pain or any dark stool or any worsening symptoms. LFT Pt has mildly el evated LFT. Pt denies any abd pain or any jaundice. Pt used to drink heavy alcohol but she only drinks socially now PHysical Pt needs annual physical. Pt has bilateral carpal tunnel syndrome and she has chornic hand weakness and weakness for years. Pt also has bright red blood in stool and some constipation for several years. Pt denies any abd pain. Pt has nail fungus and athlete foot. Pt denies any other complaints Instructions Date Instruction Additional Infor aristeo No Information Assessments Type Assessment Date No Information
--- OUTSIDE RECORDS SUMMARY | 2024-11-08 16:09 | XMS_ITS | Data Portability ---
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 Plan of Treatment Reminders Order Date Submit Date Provider Last Modified By Organization Details Last Modified Time Details Appointments None recorded. Lab cytology report, thin prep, smear or scraping, cervical or vaginal 2020 021 [facility], [address] [place] [address] 2, [place], [address], 1 10:36:28 HIV 1+2 AB + HIV 1 p24 Ag, qualitative immunoassay , serum 2020 021 [facility], [address] [place] [address], [facility] 2, [place], [address], 07:37:28 RPR (rapid plasma reagin), serum 2020 021 [facility], [address] [place] [address], [facility] 2, [place], [address], 07:37:28 HBsAg (hepatitis B surface Ag), EIA, serum 2020 021 [facility], [address] [place] [address], [facility] 2, [place], [address], 07:37:29 hepatitis C Ab, signal-to-c utoff, serum or plasma 2020 021 [facility], [address] [place] [address], [facility] 2, [place], [address], 1 07:37:27 bacterial vaginosis + vaginitis panel, vaginal 2019 020 [facility], [address] [place] [address], [place], [address], 0 08:37:43 RPR (rapid plasma reagin), serum 2018 019 [facility], [address] [place] [address], [place], [address], 0 07:36:57 HIV 1+2 AB + HIV 1 p24 Ag, qualitative immunoassay , serum 2018 019 [facility], [address] [place] [address] 2, [place], [address], 0 07:36:58 bacterial vaginosis + vaginitis panel, vaginal 2018 019 [facility], [address] [place] [address], [place], [address], 9 18:35:29 Referral None recorded. Procedures None recorded. Surgeries None recorded. Imaging MAMMO, screening, digital, bilateral 2020 021 [facility] (Imaging), [address] [place] [address] [address], [place], [address], 1 16:24:29 MAMMO, screening, digital, bilateral 2018 019 [email or web address] 23 [facility] (Scheduling), [address] [place], [address], 9 10:03:14 MAMMO, screening, digital, bilateral 2017 018 [facility] (Scheduling), [address] [place], [address], 8 11:53:06 Medication Orders estradiol 0.05 mg/24 hr weekly transdermal patch 2020 021 [email or web address] [facility], [address] [place] [address], [address], 09:39:29 Patient TargetsNo targets recorded. Patient Instructions Encounter Date Encounter Id Patient Instructions Last Modified By Organization Details Last Modified Time 01/17/2018 [id number] learning about breast cancer screening [email or web address] Not available 01/17/2018 08:59:57 03/09/2019 [id number] learning about breast cancer screening Not available 03/09/2019 10:03:07 11/07/2020 [id number] learning about breast cancer screening Not available 11/07/2020 09:39:29 Reason for Referral None Reported. Results Created Date Observation Date Name Description Value Unit Range Abnormal Flag Note LastModifiedBy Organization Detail LastModifiedTime 03/09/2003/11/2019 bacte rial vagin osis + vagin itis panel , vagin al trich vag by SCOTT Negati ve negati ve Not Available [facility] ([facility]) [address] [place], [address], 03/12/2019 18:35:29 03/09/20 19 03/11/2019 bacte rial vagin osis + vagin itis panel , vagin al chlamydia trachomatis, SCOTT Negati ve negati ve Not Available [facility] ([facility]) [address] [place], [address], 03/12/2019 18:35:29 03/09/20 19 03/11/2019 bacte rial vagin osis + vagin itis panel , vagin al neisseria gonorrhoeae, SCOTT Negati ve negati ve Not Available [facility] ([facility]) [address] [place], [address], 03/12/2019 18:35:29 03/09/20 19 03/12/2019 bacte rial vagin osis + vagin itis panel , vagin al atopobium vaginae Low - 0 score Not Available [facility] ([facility]) [address] [facility], [place], [address], 03/12/2019 18:35:29 03/09/20 19 03/12/2019 bacte rial vagin osis + vagin itis panel , vagin al bvab 2 Low - 0 score Not Available [facility] ([facility]) [address] [facility], [place], [address], 03/12/2019 18:35:29 03/09/20 19 03/12/2019 bacte rial vagin osis + vagin itis panel , vagin al megasphaera 1 Low - 0 score Calcu late total score by ene linda the 3 indiv idual bacte rial vagin osis (BV) marke r score s toget her. Total score is inter prete d as follo ws: Total score 0-1: Indic ates the absen ce of BV. Total score 2: Indet ermin ate for BV. Addit ional clini adrian data shoul d be evalu ated to estab meredith a diagn osis. Total score 3-6: Indic ates the prese nce of BV. This test was devel oped and its perfo rmanc e isabella cteri stics deter mined by [facility]. It has not been clear ed or appro edmar by the Food and Drug Admin istra tion. The FDA has deter mined that such clear ance or appro barbara is not neces yaya. Not Available [facility] ([facility]) [address] [facility], [place], [address], 03/12/2019 18:35:29 03/09/20 19 03/12/2019 bacte rial vagin osis + vagin itis panel , vagin al doni albicans, SCOTT Negati ve negati ve Not Available [facility] ([facility]) [address] [facility], [place], [address], 03/12/2019 18:35:29 03/09/20 19 03/12/2019 bacte rial vagin osis + vagin itis panel , vagin al doni glabrata, SCOTT Negati ve negati ve This test was stiven dos santos and its perfo shilpi e isabella henriquezri stics deter mined by [facility]. It has not been clear ed or appro edmar by the Food and Drug Admin istra tion. The FDA has deter mined that such clear ance or appro barbara is not neces yaya. Not Available [facility] ([facility]) [address] [place], [address], 03/12/2019 18:35:29 10/03/19 20 10/04/2019 RPR (rapi d plasm a reagi n), serum RPR Non Reacti ve non reacti ve Not Available [facility] ([facility]) [address] [place], [address], 10/04/2019 07:36:57 10/03/1910/04/2019 HIV 1+2 AB + HIV 1 p24 Ag, quali tativ e immun oassa y, serum HIV screen 4TH generation wrfx Non Reacti ve non reacti ve Not Available [facility] ([facility]) [address] [place], [address], 10/04/2019 07:36:58 11/22/19 20 11/28/2019 bacte rial vagin osis + vagin itis panel , vagin al atopobium vaginae Modera te - 1 score Not Available [facility] ([facility]) [address] [place], [address], 11/28/2019 08:37:43 11/22/1911/28/2019 bacte rial vagin osis + vagin itis panel , vagin al bvab 2 Low - 0 score Not Available [facility] ([facility]) [address] [place], [address], 11/28/2019 08:37:43 11/22/1911/28/2019 bacte rial vagin osis + vagin itis panel , vagin al megasphaera 1 Low - 0 score Calcu late total score by ene linda the 3 indiv idual bacte rial vagin osis (BV) marke r score s toget her. Total score is inter prete d as follo ws: Total score 0-1: Indic ates the absen ce of BV. Total score 2: Indet ermin ate for BV. Addit ional clini adrian data shoul d be evalu ated to estab meredith a diagn osis. Total score 3-6: Indic ates the prese nce of BV. This test was devel oped and its perfo rmanc e isabella cteri stics deter mined by [facility]. It has not been clear ed or appro edmar by the Food and Drug Admin istra tion. The FDA has deter mined that such clear ance or appro barbara is not neces yaya. Not Available [facility] ([facility]) [address] [place], [address], 11/28/2019 08:37:43 11/22/19 20 11/28/2019 bacte rial vagin osis + vagin itis panel , vagin al doni albicans, SCOTT Negati ve negati ve Not Available [facility] ([facility]) [address] [place], [address], 11/28/2019 08:37:43 11/22/19 20 11/28/2019 bacte rial vagin osis + vagin itis panel , vagin al doni glabrata, SCOTT Negati ve negati ve Not Available [facility] ([facility]) [address] [place], [address], 11/28/2019 08:37:43 11/22/1911/28/2019 bacte rial vagin osis + vagin itis panel , vagin al trich vag by SCOTT Negati ve negati ve Not Available [facility] ([facility]) [address] [place], [address], 11/28/2019 08:37:43 11/22/19 20 11/28/2019 bacte rial vagin osis + vagin itis panel , vagin al chlamydia trachomatis, SCOTT Negati ve negati ve Not Available [facility] ([facility]) [address] [facility], [place], [address], 11/28/2019 08:37:43 11/22/19 20 11/28/2019 bacte rial vagin osis + vagin itis panel , vagin al neisseria gonorrhoeae, SCOTT Negati ve negati ve Not Available [facility] ([facility]) [address] [facility], [place], [address], 11/28/2019 08:37:43 11/08/19 21 11/08/2020 HCV ANTIB AMANDA RFX TO QUANT PCR HCV Ab <0.1 s/co_ ratio 0.0-0. 9 Not Available [facility] ([facility]) [address] [facility], [place], [address], 11/08/2020 07:37:27 11/08/19 21 11/08/2020 HCV ANTIB AMANDA RFX TO QUANT PCR interpretati on: Commen t Negat javon Not infec chelsea with HCV, unles s recen t infec tion is suspe cted or other evide nce exist s to indic ate HCV infec tion. Not Available [facility] ([facility]) [address] [facility], [place], [address], 11/08/2020 07:37:27 11/08/19 21 11/08/2020 RPR, RFX QN RPR/C ONFIR M TP RPR Non Reacti ve non reacti ve Not Available [facility] ([facility]) [address] [facility], [place], [address], 11/08/2020 07:37:28 11/08/19 21 11/08/2020 HIV AG/AB WITH REFLE X HIV screen 4TH generation wrfx Non Reacti ve non reacti ve Not Available [facility] ([facility]) [address] [facility], [place], [address], 11/08/2020 07:37:28 11/08/19 21 11/08/2020 HBSAG SCREE N HBsAg screen Negati ve negati ve Not Available [facility] ([facility]) [address] [place], [address], 11/08/2020 07:37:29 11/08/19 21 11/09/2020 IGP,C TNGTV ,APT HPV,R FX16/ 18,45 chlamydia, nuc. acid amp Negati ve negati ve Not Available [facility] ([facility]) [address] [place], [address], 11/11/2020 10:36:27 11/08/19 21 11/09/2020 IGP,C TNGTV ,APT HPV,R FX16/ 18,45 gonococcus, nuc. acid amp Negati ve negati ve Not Available [facility] ([facility]) [address] [facility], [place], [address], 11/11/2020 10:36:27 11/08/19 21 11/09/2020 IGP,C TNGTV ,APT HPV,R FX16/ 18,45 trich vag by SCOTT Negati ve negati ve Not Available [facility] ([facility]) [address] [place], [address], 11/11/2020 10:36:27 11/08/19 21 11/10/2020 IGP,C TNGTV ,APT HPV,R FX16/ 18,45 HPV aptima Negati ve negati ve This nucle ic acid ampli ficat ion test detec ts fourt een high- risk HPV types (16,1 8,31, 33,35 ,39,4 5,51, 52,56 ,58,5 9,66, 68) witho ut diffe renti ation . Not Available [facility] ([facility]) [address] [place], [address], 11/11/2020 10:36:27 11/08/19 21 11/11/2020 IGP,C TNGTV ,APT HPV,R FX16/ 18,45 diagnosis: Yuri TO FOR INTRA EPITH ELIAL LESIO N OR AUBREE HOLLOWAYCY . Not Available [facility] ([facility]) [address] [facility], [place], [address], 11/11/2020 10:36:27 11/08/19 21 11/11/2020 IGP,C TNGTV ,APT HPV,R FX16/ 18,45 specimen adequacy: Yuri rizvi Satis facto ry for evalu ation . No endoc ervic al compo nent is ident ified . Not Available [facility] ([facility]) [address] [facility], [place], [address], 11/11/2020 10:36:27 11/08/1911/11/2020 IGP,C TNGTV ,APT HPV,R FX16/ 18,45 clinician provided ICD10: Yuri rizvi Z01.4 19 Not Available [facility] ([facility]) [address] [facility], [place], [address], 11/11/2020 10:36:27 11/08/19 21 11/11/2020 IGP,C TNGTV ,APT HPV,R FX16/ 18,45 performed by: Yuri donaldson, José Antonio rizvi Not Available [facility] ([facility]) [address] [place], [address], 11/11/2020 10:36:27 11/08/1911/11/2020 IGP,C TNGTV ,APT HPV,R FX16/ 18,45 . . Not Available [facility] ([facility]) [address] [place], [address], 11/11/2020 10:36:27 11/08/19 21 11/11/2020 IGP,C TNGTV ,APT HPV,R FX16/ 18,45 note: Commen t The Pap smear is a scree willy test desig harrison to aid in the detec tion of altagracia ligna nt and malig nant condi tions of the uteri ne cervi x. It is not a diagn ostic proce dure and shoul d not be used as the sole means of detec ting cervi adrian cance r. Both false -posi tive and false -nega tive repor ts do occur . Not Available [facility] ([facility]) [address] [facility], [place], [address], 11/11/2020 10:36:27 11/08/1911/11/2020 IGP,C TNGTV ,APT HPV,R FX16/ 18,45 test methodology: Commen t This liqui d based ThinP rep(R ) pap test was scree harrison with the use of an image guide darrin crum. Not Available [facility] ([facility]) [address] [facility], [place], [address], 11/11/2020 10:36:27 01/21/20 18 10/15/2015 MAMMO , diagn ostic , bilat eral No observ ation record ed. BARCODE Not Available 2017 14:21:18 01/21/20 18 10/15/2015 US, neftaly t, bilat eral, limit ed No observ ation record ed. BARCODE Not Available 2017 14:21:18 02/20/20 18 02/18/2018 MAMMO , scree willy, digit al, bilat eral No observ ation record ed. [email or web address] Not Available 03/15 09:17:27 12/27/1912/25/2020 MAMMO , scree willy, digit al, bilat eral No observ ation record ed. [email or web address] [facility] [address] [place] [address], [place], [address], 12/31/2020 16:44:05 Result Notes None recorded. Problems Name Problem SNOMED Code Status Onset Date Resolution Date Notes Provider Name and Address Organization Details Recorded Time Hypercholestero lemia 52616962 Active Merced Flores RN [facility], [facility] 6 17:03:58 Menopausal symptom 85831288 Active Merced Flores RN null, [facility] 6 17:03:58 Candidal vulvovaginitis 87282500 Active Merced Flores RN [facility], [facility] 6 17:03:58 Problem Notes None recorded. Procedures Surgical History Date Name Laterality Status Provider Name and Address Organization Details Recorded Time 11/08/19 21 Date of Last Pap Smear completed Rylee Adam MA [facility] 11/14/2020 10:49:39 02/29/20 19 colonoscopy completed Rylee Thomasford [facility] 03/09/2019 09:26:19 02/19/20 18 Most Recent Mammogram completed Rylee Thomasford [facility] 03/09/2019 09:22:01 04/26/19 16 Other completed Rylee Adam [facility] 01/17/2018 08:35:48 04/26/19 15 Other completed Rylee Adam [facility] 01/04/2017 11:45:36 04/26/19 03 Hysterectomy completed Walker Mercedes [facility] 11/07/2020 09:19:37 04/26/18 91 Caesarean Section completed Rylee Thomasford [facility] 10/24/2015 09:03:53 Tonsillectomy completed Rylee Thomasford [facility] 10/24/2015 09:03:53 Imaging Results None recorded. Procedure Notes None recorded. Medical Equipment None Reported. Allergies Allergen ID Allergen Name Allergen Category Reaction Reaction Severity Criticality Documentation Date Start Date Code Code System Note Provider Name and Address Organization Details Recorded Time 61200 Valium medicatio n nausea Not available Not available 01/12/2017 2 RxNorm Rylee Thomasford mary [facility] 7 09:03:17 Medications Name Sig Start Date Stop Date Status Note LastModified by Organization Details LastModified Time quetiapine 25 mg tablet TAKE 1 TABLET BY MOUTH EVERY NIGHT AT BEDTIME 11/07 completed Not Available Not Available Not Available cyclobenzap rine 10 mg tablet TK 1 T PO HS PRF MUSCLE SPASM active Not Available Not Available No t Available atorvastati n 40 mg tablet TAKE 1 TABLET BY MOUTH DAILY active Not Available Not Available No t Available venlafaxine ER 75 mg capsule,ext ended release 24 hr TK 1 C PO QD WF 11/07 completed Not Available Not Available Not Available trazodone 50 mg tablet 11/07 completed Not Available Not Available Not Available azithromyci n 250 mg tablet 03/09 completed Not Available Not Available Not Available Lidocaine Viscous 2 % mucosal solution SWISH AND SPIT WITH 15 ML EVERY 3 HOURS NEEDED. DO NOT EXCEED 8 DOSES PER DAY 11/07 completed Not Available Not Available Not Available fluconazole 150 mg tablet Take 1 tablet every week by oral route. 01/17 completed Not Available Not Available Not Available hydrocodone 5 mg-acetamin ophen 325 mg tablet TK 1 T PO Q 8 H FOR 4 DAYS PRF PAIN 11/07 completed Not Available Not Available Not Available ondansetron HCl 4 mg tablet 01/04 completed Not Available Not Available Not Available famotidine 40 mg tablet active Not Available Not Available Not Available estradiol 0.05 mg/24 hr weekly transdermal patch Apply 1 patch every week by transderm al route. active Not Available Not Available No t Available venlafaxine ER 150 mg capsule,ext ended release 24 hr TAKE 1 CAPSULE BY MOUTH EVERY DAY active Not Available Not Available No t Available hydroxyzine pamoate 50 mg capsule TAKE 1 CAPSULE BY MOUTH EVERY NIGHT AT BEDTIME active Not Available Not Available No t Available oxcarbazepi ne 300 mg tablet TAKE 1 TABLET BY MOUTH EVERY MORNING AND 1 AND 1/2 TABLETS AT BEDTIME active Not Available Not Available No t Available sulfamethox azole 800 mg-trimetho prim 160 mg tablet 01/17 completed Not Available Not Available Not Available omeprazole 40 mg capsule,del ayed release TAKE 1 CAPSULE BY MOUTH EVERY DAY BEFORE A MEAL active Not Available Not Available No t Available tramadol 50 mg tablet 01/17 completed Not Available Not Available Not Available lamotrigine 25 mg tablet 11/07 completed Not Available Not Available Not Available Kenalog 40 mg/mL suspension for injection USE DIRECTED BY PHYSICIAN active Not Available Not Available No t Available meloxicam 7.5 mg tablet TAKE 1 TABLET BY MOUTH EVERY DAY WITH FOOD active Not Available Not Available No t Available oxycodone-a cetaminophe n 5 mg-325 mg tablet 01/04 completed Not Available Not Available Not Available terbinafine HCl 250 mg tablet Take 1 tablet every day by oral route. 03/09 completed Not Available Not Available Not Available estradiol 1 mg tablet Take 1 tablet every day by oral route. 01/04 completed Not Available Not Available Not Available cephalexin 500 mg capsule 03/09 completed Not Available Not Available Not Available pantoprazol e 40 mg tablet,elizabeth yed release 01/17 completed Not Available Not Available Not Available simvastatin 20 mg tablet Take 1 tablet every day by oral route. 01/17 completed Not Available Not Available Not Available promethazin e 25 mg tablet 03/09 completed Not Available Not Available Not Available diclofenac potassium 50 mg tablet 03/09 completed Not Available Not Available Not Available gabapentin 300 mg capsule TAKE 1 CAPSULE BY MOUTH FOUR TIMES DAILY active Not Available Not Available No t Available omeprazole 20 mg capsule,del ayed release TAKE 1 CAPSULE BY MOUTH TWICE DAILY 11/07 completed Not Available Not Available Not Available montelukast 10 mg tablet TAKE 1 TABLET BY MOUTH DAILY active Not Available Not Available No t Available diclofenac sodium 50 mg tablet,elizabeth yed release active Not Available Not Available Not Available mirtazapine 15 mg tablet TAKE 1 TABLET BY MOUTH ONCE DAILY AT BEDTIME 11/07 completed Not Available Not Available Not Available methylpredn isolone 4 mg tablets in a dose pack 03/09 completed Not Available Not Available Not Available ondansetron 4 mg disintegrat ing tablet 03/09 completed Not Available Not Available Not Available fluticasone propionate 50 mcg/actuati on nasal spray,suspe nsion 11/21 completed Not Available Not Available Not Available lamotrigine 100 mg tablet TK 1 T PO D 11/07 completed Not Available Not Available Not Available bupropion HCl XL 150 mg 24 hr tablet, extended release TK 1 T PO D 11/07 completed Not Available Not Available Not Available bupropion HCl (bulk) 11/07 completed Not Available Not Available Not Available peg 3350 240 gram-electr olytes 22.72 gram-6.72 g-5.84 g powdr for soln 03/09 completed Not Available Not Available Not Available omeprazole 20 mg tablet,elizabeth yed release 03/09 completed Not Available Not Available Not Available Linzess 01/04 completed Not Available Not Available Not Available Vitals Date Recorded Body height Body mass index (BMI) Body weight Systolic And Diastolic Provider Name and Address Organization Details Last Updated DateTime 11/07/2020 162.56 cm 25.7 kg/m2 96760.5 g 130/98 mm[Hg] Rylee Adam [facility] 11/07/2020 09:07:20 Date Recorded Body height Provider Name an d Address Organization Details Last Updated DateTime 11/14/2020 162[address] [facility] 11/14 10:49:09 Date Recorded Body height Body mass index (BMI) Body weight Systolic And Diastolic Provider Name and Address Organization Details Last Updated DateTime 11/22/2019 162.56 cm 24.8 kg/m2 63462.38 g 130/100 mm[Hg] Rylee Adam [facility] 11/22/2019 15:57:38 Date Recorded Body weight Body mass index (BMI) Body height Systolic And Diastolic Provider Name and Address Organization Details Last Updated DateTime 01/17/2018 23719.26 g 25.6 kg/m2 162.56 cm 124/90 mm[Hg[facility] 08:31:22 Date Recorded Body weight Body mass index (BMI) Body height Systolic And Diastolic Provider Name and Address Organization Details Last Updated DateTime 03/09/2019 77210.4 g 26.1 kg/m2 162.56 cm 130/84 mm[Hg] [facility] 03/09/[facility] 09:15:41 Social History Question Answer Notes LastModified by Organizat ion Details LastModified Time Tobacco Smoking Status Former Smoker quit 2013 Not Available [employer] 02/27/2020 03:43:21 Is Blood Transfusion Acceptable In An Emergency? Yes [id number] Information not available 02/27/2020 What Is Your Level Of Caffeine Consumption? Heavy [id number] Information not available 02/27/2020 How Much Tobacco Do You Chew? None [id number] Information not available 02/27/2020 In The 14 Days Before Symptom Onset, Have You Had Close Contact With A Laboratory-confir med COVID-19 While That Case Was Ill? No Information not available 11/07/2020 In The 14 Days Before Symptom Onset, Have You Had Close Contact With A Person Who Is Under Investigation For COVID-19 While That Person Was Ill? No Information not available 11/07/2020 Have You Been To An Area Known To Be High Risk For COVID-19? No Information not available 11/07/2020 What Type Of Diet Are You Following? REGULAR [id number] Information not available 02/27/2020 Which Illicit Or Recreational Drugs Have You Used? Marijuanna [id number] Information not available 02/27/2020 Education 12 Some College Information not available 01/04/2017 What Is The Highest Grade Or Level Of School You Have Completed Or The Highest Degree You Have Received? [id number] Information not available 11/07/2020 Live Alone Or With Others? With Others Information not available 10/24/2015 What Was The Date Of Your Most Recent Tobacco Screening? 11/22/2019 [id number] Information not available 02/27/2020 How Many Children Do You Have? 1 [id number] Information not available 02/27/2020 Performs Monthly Self-breast Exam? No Information no t available 10/24/2015 Do You Use Protection During Sex? Usually [id number] Information not available 02/27/2020 What Is Your Relationship Status? Single [id number] Information not available 02/27/2020 Do You Use Your Seat Belt Or Car Seat Routinely? Yes Information not available 11/07/2020 Seat Belts Used Routinely Yes Information not available 10/24/2015 Are You Sexually Active? No Information not available 11/07/2020 At What Age Did You Start Smoking Tobacco? 12 [id number] Information not available 02/27/2020 How Much Tobacco Do You Smoke? No [id number] Information not available 02/27/2020 General Stress Level High Information not available 10/24/2015 Do You Use Sunscreen Routinely? Yes [id number] Information not available 02/27/2020 How Many Years Have You Smoked Tobacco? 31 [id number] Information not available 02/27/2020 Sex: Female Functional Status Question Answer Note LastModified by Organizat ion Details LastModified Time Do you use any illicit or recreational drugs? Yes Information not available 11/07/2020 Do you or have you ever used any other forms of tobacco or nicotine? No Information not available 11/07/2020 What is your level of alcohol consumption? None [id number] Information not available 02/27/2020 Are you currently employed? Yes [id number] Information not available 02/27/2020 What is your exercise level? Heavy [id number] Information not available 02/27/2020 Mental Status Question Answer Note LastModified by Organization D etails LastModified Time Do you feel stressed (tense, restless, nervous, or anxious, or unable to sleep at night)? [id number] Information not available 11/07/2020 Family History Relationship Description Onset Age of this Age Resolved Age Notes LastModified by Organization Details LastModified Time Father Heart disease [email or web address] Not available 11/17 17:03:58 Father Hypercholest erolemia [email or web address] Not available 11/17 17:03:58 Father Hypertensive disorder [email or web address] Not available 11/07 09:12:53 Mother Heart disease Not available 11/17 17:03:58 Mother Hypercholest erolemia [email or web address] Not available 11/17 17:03:58 Mother Hypertensive disorder [email or web address] Not available 11/07 09:12:58 Paternal Grandfather Heart disease Not available 11/17 17:03:58 Paternal Grandfather Hypertensive disorder [email or web address] Not available 11/17 17:03:58 Paternal Grandfather Diabetes mellitus [email or web address] Not available 11/17 17:03:58 Paternal Grandfather Hypercholest erolemia [email or web address] Not available 11/17 17:03:58 Paternal Grandmother Heart disease [email or web address] Not available 11/17 17:03:58 Paternal Grandmother Malignant neoplasm of lung [email or web address] Not available 11/17 17:03:58 Maternal Grandmother Heart disease [email or web address] Not available 11/17 17:03:58 Maternal Grandmother Cerebrovascu lar accident [email or web address] Not available 17:03:58 Maternal Grandmother Hypertensive disorder [email or web address] Not available 11/17 17:03:58 Maternal Grandmother Hypercholest erolemia [email or web address] Not available 11/17 17:03:58 Maternal Grandfather Malignant tumor of pharynx Not available 11/17 17:03:58 Maternal Grandfather Hypertensive disorder [email or web address] Not available 11/17 17:03:58 Medical History Condition Response Other N High Blood Pressure N Breast Cancer N Thyroid Problems N Kidney or Bladder Problems N GI Problems Y Depression Y Blood Clots Y Lung Disease N Acne N Breast Problem Y Eating Disorder N Anemia N Anesthesia Complications N Headaches/Migraines Y Anxiety Disorder N Diabetes N Ovarian Cancer N Muscle, Joint, or Bone Problems Y Blood Transfusions N Seizures/Epilepsy N Polyps N Infertility N Acid Reflux (GERD) Y Cancer N Abuse/Domestic Violence N Asthma N Endometriosis N High Cholesterol Y Hepatitis N Liver Disease N Heart Disease N Pre-Eclampsia N Osteoporosis N Gynecological History Statement/Question Response Abnormal Pap N On BCP's at Conception? N STIs/STDs N HPV Vaccine N Most Recent Mammogram 02/18/2018 Age at Menarche Current Control Method Hysterectom y Age at First Child 21 Sexually Active? N Menses Monthly N Date of Last Pap Smear 11/07/2020 Sexual Problems? N LMP Approximate Obstetrics History GPAL:G 2 P 1 0 1 1 Type Value Multiple Births 0 Full Term 1 Induced 1 Spontaneous 0 Premature 0 Living 1 Ectopics 0 Total 2 Past Encounters Encounter ID Performer Location Encounter Start Date Encounter Closed Date Diagnosis/Indication Diagnosis SNOMED-CT Code Diagnosis ICD10 Code Diagnosis Note [id number] MD Maya Jean-Baptiste ([facility]) [address] [place] [address] 10/24/2015 08:30:03 10/29/2015 15:01:35 Gynecologic examination 40146384 Z01.419 Venereal d isease screening 891021246 Z11.3 Pt. is getting hepatitis panel with GI physician. HIV and RPR ordered. RTO one week for results Screening for malignant neoplasm of breast 801772718 Z12.39 Menopausal symptom 26452 002 N95.1 Benefits, risks, and alternativ es to HT d/w pt. Pt. desires HT. Rx sent to pharmacy. Instructdebra tirado discussed. Candidal vulvovaginitis 22248954 B37.3 Diagnosis d/w pt. Rx sent to pharmacy. Instructdebra tirado discussed. [id number] [facility] [address] [place] [address] 11/18/2015 16:44:09 11/19/2015 08:03:13 Gynecologic examination 73280173 Z01.419 Pap done 10/24/15 was negative with negative hr-HPV, dwp. RTO PRN + one year for AE. Venereal d isease screening 844514352 Z11.3 HIV was negative. Syphilis testing was also negative. Vaginal culture was negative for gonorrhea, chlamydia, and trichomona s, dwp. [id number] [facility] [address] [place] [address] 01/04/2017 11:29:31 06/09/2017 18:25:17 Candidal vulvovaginitis 92190699 B37.3 Diagnosis d/w pt. Rx sent to pharmacy. Instructdebra tirado discussed. Vaginal discharge 567224 006 N89.8 Pt. to call for results in one week. [id number] [facility] [address] [place] [address] 01/12/2017 08:49:42 01/12/2017 12:45:17 Gynecologic examination 66638070 Z01.419 Last pap done 10/24/15 was negative with negative hr-HPV. Therefore, no pap needed. Screening for malignant neoplasm of breast 305315681 Z12.39 Tinea corporis 59203424 B35.4 Vaginal infection into skin of vulva. Diagnosis d/w pt. Rx sent to pharmacy. Instructdebra tirado discussed. [id number] MD Maya Jean-Baptiste ([facility]) [address] [place] [address] 01/17/2018 08:11:48 01/18/2018 10:07:26 Gynecologic examination 86273721 Z01.419 Pt had hysterecto my for abnormal cervical cells.Last pap done 10/24/15 was negative with negative hr-HPV. Therefore, no pap needed. Screening for malignant neoplasm of breast 829952504 Z12.39 Last mammogram 10/15/15 [id number] MD Maya Jean-Baptiste ([facility]) [address] [place] [address] 03/09/2019 08:50:19 03/10/2019 10:25:11 Gynecologic examination 08677914 Z01.419 Pt had hysterecto my for abnormal cervical cells.Last pap done 10/24/15 was negative with negative hr-HPV. Therefore, no pap needed. Venereal d isease screening 932959714 Z11.3 RTO one week for results. Screening for malignant neoplasm of breast 676379168 Z12.39 UTD. [id number] MD Leonie [facility]iste[facility] ([facility]) [address] [place] [address] 11/22/2019 15:47:09 11/23/2019 05:58:10 Venereal disease screening 034409233 Z11.3 RPR and HIV were negative, dwp. Pt. already had negative Hep B and Hep C tests with another doctor. Vaginal culture obtained. Exam normal, dwp. Will call pt. with results of culture. Vaginal irritation 53034 6004 N89.8 Possible due to trauma during intercours e. More likely skin irritation from own secretions . Option of lidocaine jelly vs antihistam inocencia discussed. Pt. will tolerate it for now, await culture. [id number] MD Leonie [facility] ([facility]) [address] [place] [address] 11/07/2020 08:50:54 11/07/2020 19:33:20 Gynecologic examination 61479689 Z01.419 Pt had hysterecto my for abnormal cervical cells.Last pap done 10/24/15 was negative with negative hr-HPV. Therefore, pap due. Pap done. Venereal d isease screening 327997674 Z11.3 Telephone visit one week for results. Menopausal symptom 10290 002 N95.1 Benefits, risks, and alternativ es to HT d/w pt. Pt. desires HT. Rx sent to pharmacy. Desean tirado discussed. Screening for malignant neoplasm of breast 225973510 Z12.39 Last 2017. Mammogram ordered. [id number] MD Maya Jean-Baptiste ([facility]) [address] [place] [address] 11/14/2020 08:07:58 11/15/2020 06:22:27 Gynecologic examination 56499665 Z01.419 Pt had hysterecto my for abnormal cervical cells.Pap done 11/07/20 was negative with negative hr-HPV, dwp. Venereal d isease screening 708713772 Z11.3 Vaginal culture was negative for gonorrhea, chlamydia, and trichomona s, dwp. STD panel was also completely negative. Individual test results dwp. Health Concerns Section Related Observation LastModified by Organization Detai ls LastModified Time None Recorded Concern Status LastModified by Organization Details LastModified Time None Recorded Advance Directives Directive None Recorded Payers Insurance Date Sequence Insurance Name Policy Number Policy Collado Covered Member ID Collado Member ID Guarantor Name 12/12/2021 1 [facility] ON OR AFTER 10/24/20 (MEDICAID REPLACEMENT - HMO) Penny Quinn [id number] Penny Quinn 11/07/2020 1 [facility] PRIOR TO 10/24/2020 (MEDICAID REPLACEMENT - HMO) Penny Kai [id number] Penny Quinn Notes Date Note Type Note Provider Name and Address Organization Details Recorded Time 01/17/2018 text/html Annual GYNReport ed bypatient.Menstrua l cycle:Normal menses Urinary symptoms:No hematuria; No incontinence Vulva:No genital lesion Vagina:Normal vaginal discharge Breast:No breast pain; No breast lump; No nipple discharge Current Contraception:hyst erectomy Sexual complaints:No sexual complaints; No pain during intercourse; Normal libido Menopausal Symptoms:No menopausal symptoms; Normal vaginal lubrication Psychological symptoms:No depression; No anxiety; No PMDD Preventive measures:Encourage self breast examination; Encourage regular exercise; Encourage no tobacco use; Encourage regular mammograms starting age 40 Walker hernandez [place] [facility] 01/17/2018 09:41:21 03/09/2019 text/html Annual GYNReport ed bypatient.Menstrua l cycle:Normal menses Urinary symptoms:No hematuria; No incontinence Vulva:No genital lesion Vagina:Normal vaginal discharge Breast:No breast pain; No breast lump; No nipple discharge Current Contraception:hyst erectomy Sexual complaints:No sexual complaints; No pain during intercourse; Normal libido Menopausal Symptoms:No menopausal symptoms; Normal vaginal lubrication Psychological symptoms:No depression; No anxiety; No PMDD Preventive measures:Encourage self breast examination; Encourage regular exercise; Encourage no tobacco use; Encourage regular mammograms starting age 40; Needs to schedule mammogram Walker hernandez [facility] 03/09/2019 10:06:19 11/22/2019 text/html Pt. presents wit h c/o bumps in her vagina and discomfort when working out. It feels like irritation and burning. Walker hernandez [facility] 11/22/2019 16:27:08 11/07/2020 text/html Annual GYNReport ed bypatient.Menstrua l cycle:Normal menses Urinary symptoms:No hematuria; No incontinence Vulva:No genital lesion Vagina:Normal vaginal discharge Breast:No breast pain; No breast lump; No nipple discharge Current Contraception:hyst Sexual complaints:No sexual complaints; No pain during intercourse; Normal libido Menopausal Symptoms:No menopausal symptoms; Normal vaginal lubrication Psychological symptoms:No depression; No anxiety; No PMDD Preventive measures:Encourage self breast examination; Encourage regular exercise; Encourage no tobacco use; Encourage regular mammograms starting age 40; Needs to schedule mammogram Walker hernandez [facility] 11/07/2020 09:41:43 11/14/2020 text/html Telephone visit due to COVID-19 pandemic. Pt. called with results of pap and STD testing. She has no complaints. Walker hernandez [facility] 11/14/2020 10:53:59 OBGyn Episode Ob Episode Information Episode Created Date Number of Fetuses Patient Bloodtype Patient rh Status Prepregnancy Weight lbs Domestic Partner Domestic Partner Phone Father Name Outer Diameter Grinder Status 10/24/19 16 1 CLOSED Fetus Data First Name Last Name Admitted to NICU Weight (g) Sex Living Outcome Pediatric Complications Fetus ID Race Codes Race Delivery Type 3515.33 8 F Full Term [id number] Damian Calculation Initial Damian Date Initial Exam Date Initial Exam Provider Initial Ultrasound Date Last Menstrual Period Date Ultra Sound Weeks Gestation 0 Eighteen To Twenty Week Damian Update Ultra Sound Date Fundal Height At Umbil Quickening Date Ultra Sound Latest Weeks Gestation Final Damian Confirmed By Final Damian Confirmed Date Final Damian Date Ultra Sound Latest Days Gestation 0 0 Menstrual History Last Menstrual Date Menses Monthly On Bcp Conception Prior Menses Frequency Hcg Plus Date Menarche Onset Age Delivery Information Delivery Date Delivery Type Labor Anesthesia Weeks Gestation Incision Type Labor Labor Length Hrs Delivered By Post Complications Tubal Sterilization Discharge Date Comments 1 Discharge Information Feeding Method Contraceptive Method Maternal HG B and HCT Levels
--- OUTSIDE RECORDS SUMMARY | 2024-11-08 16:09 | XMS_ITS | Referral Summary ---
Author Organization [facility] Address [address] [place] [address] Care Team Providers Care Sheet Metal Technician Name Role Phone Jose Saldaña NP Primary Care Provider [phone] Encounters Date Type Department Care Team Description 11/02/2024 Orders Only [facility] [address] [facility] [address] [place] [address] Leonidas Pedersen MD Chronic idiopathic constipation (Primary Dx) 11/02/2024 2:00 PM CDT Office Visit [facility] [address] [facility] [address] [place] [address] Leonidas Pedersen MD Chronic idiopathic constipation (Primary Dx); Rectal prolapse from Last 3 Months Allergies Active Allergy Reactions Criticality Noted Date Comments Diazepam Other (See comments) Low 11/19/2017 Makes her queezy Medications gabapentin (NEURONTIN) 300 mg capsule TK ONE C PO QID 0 Active lamoTRIgine (LaMICtal) 100 mg tablet TK 1 T PO D 0 Active atorvastatin (LIPITOR) 40 mg tablet TK 1 T PO D 0 Active buPROPion XL (WELLBUTRIN XL) 150 mg 24 hr tablet TK 1 T PO D 0 Active montelukast (SINGULAIR) 10 mg tablet TK 1 T PO D 0 Active losartan (COZAAR) 100 mg tablet Take 1 tablet (100 mg total) by mouth daily Active hydrOXYzine (VISTARIL) 50 mg capsule Take 1 capsule (50 mg total) by mouth Active meloxicam (MOBIC) 7.5 mg tablet Take 1 tablet (7.5 mg total) by mouth daily Active pantoprazole DR (PROTONIX) 40 mg EC tablet Take 1 tablet (40 mg total) by mouth daily Active OXcarbazepine (TRILEPTAL) 300 mg tablet Take 1 tablet (300 mg total) by mouth nightly Active venlafaxine XR (EFFEXOR-XR) 150 mg 24 hr capsule Take 1 capsule (150 mg total) by mouth daily Active omeprazole (PriLOSEC) 20 mg capsule TK 1 C PO BID 0 11/03/19 Discontinu ed(Patient Reported) diclofenac-miSO PROStol DR (ARTHROTEC 50) 50-200 mg-mcg EC tablet Take by mouth 11/03/19 Discontinu ed(Patient Reported) Active Problems Problem Noted Date Diagnosed Date Rectal prolapse 11/02/2024 Chronic idiopathic constipation 11/02/2024 Social History Tobacco Use Types Packs/Day Years Used Date Smoking Tobacco: Every Day Vaping Passive Smoke Exposure: Never Smokeless Tobacco: Never Tobacco Cessation:Ready to Q uit: Not Asked Alcohol Use Standard Drinks/Week Comments Never 0 (1 standard drink = 0.6 oz pur e alcohol) AUDIT-C Answer Date Recorded Q1: How often do you have a drink containing alc ohol? 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 Not on file Not on file Last Filed Vital Signs Vital Sign Reading Time Taken Comments Blood Pressure 138/88 11/02/2024 1:33 PM CDT Pulse 67 11/02/2024 1:33 PM CDT Temperature 36.9 C (98.4 F) 11/02/2024 1:33 PM CDT Respiratory Rate - - Oxygen Saturation 98% 11/02/2024 1:33 PM CDT Inhaled Oxygen Concentration - - Weight 68 kg (150 lb) 11/02/2024 1:33 PM CDT Height 162.6 cm (5' 4) 11/02/2024 1:33 PM CDT Body Mass Index 25.75 11/02/2024 1:33 PM CDT Plan of Treatment Not on file Insurance Care Teams Sheet Metal Technician Relationship Specialty Start Date End Date Jose Saldaña NP [address] [facility] [address] [place] [address] PCP - General Nurse Practitioner 11/02/24
--- OUTSIDE RECORDS SUMMARY | 2024-11-08 16:09 | XMS_ITS | Clinical Summary ---
Author Organization [facility] Address [address] [place] [address] Care Team Providers Care Day Guard Name Role Phone Jose Saldaña NP Primary Care Provider Allergies Active Allergy Reactions Criticality Noted Date [...] tablet (40 mg total) by mouth daily 5 Active OXcarbazepine (TRILEPTAL) 300 mg tablet Take 1 tablet (300 mg total) by mouth nightly Active venlafaxine XR (EFFEXOR-XR) 150 mg 24 hr capsule Take 1 capsule (150 mg total) by mouth daily Active omeprazole (PriLOSEC) 20 mg capsule TK 1 C PO BID 0 11/03/19 25 Discontinu ed(Patient Reported) diclofenac-miSO PROStol DR (ARTHROTEC 50) 50-200 mg-mcg EC tablet Take by mouth 11/03/19 25 Discontinu ed(Patient Reported) Active Problems Problem Noted Date Diagnosed Date Rectal prolapse 11/02/2024 Chronic idiopathic constipation 11/02/2024 Encounters Date Type Department Care Team Description 11/02/2024 2:00 PM CDT Office Visit [facility] [address] [facility] [address]nd [address] [place] [address] Leonidas Pedersen MD Chronic idiopathic constipation (Primary Dx); Rectal prolapse 11/02/2024 Orders Only [facility] [address] [facility] [address] [place] [address] Leonidas Pedersen MD Chronic idiopathic constipation (Primary Dx) from Last 3 Months Surgical History Surgery Date Site/Laterality Comments HYSTERECTOMY SECTION TONSILLECTOMY CARPAL TUNNEL RELEASE UMBILICAL HERNIA REPAIR Medical History Medical History Date Comments Cancer (HCC) Hypertension Lipid disorder Colon polyps Family History Medical History Relation Name Comments Arthritis Other Cancer Other Clotting disorder Other Diabetes Other Heart disease Other Hypertension Other Stroke Other Relation Name Status Comments Other Social History Tobacco Use Types Packs/Day Years [...] on file 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 Sex 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 Gender Identity Not on file Sexual Orientation Not on file 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 Not on file Not on file Obstetrics History Last Filed Vital Signs Vital Sign Reading [...] 11/02/2024 1:33 PM CDT Plan of Treatment Health Maintenance Due Date Last Done Comments Colon Cancer Screening-Colonoscopy 1971 Depression Screening 1971 Hepatitis C Screening 1971 Hepatitis B Screening 1989 Regular Well Visit/Exam 18-64 1989 Pneumococcal vaccine <65 (1 of 2 - PCV) 1990 Breast Cancer Screening-Mammogram 02/18/2019 018 Zoster Vaccine (1 of 2) 2021 Covid-19 Vaccine ( - season) 2023 07/25/2021, 08/16/2020, 07/19/2020 Influenza Vaccine (#1) 2024 DTaP/Tdap/Td Vaccine (3 - Td or Tdap) 02/04/203403/2024, 11/19/2017 Insurance ([place]) [address] [place], [place] [id number] [place] [address] [facility] Care Teams Day Guard Relationship Specialty Start Date End Date Jose Saldaña NP [address] [place] [address] PCP - General Nurse Practitioner 11/02/24
--- OUTSIDE RECORDS SUMMARY | 2024-11-08 16:09 | XMS_ITS | Clinical Summary ---
Author Organization [facility] Address [address] [place] [address] Care Team Providers Care Profile Saw Setup Operator Name Role Phone None, Provider MD Primary Care Provider Unavaila ble Allergies Active Allergy Reactions Criticality Noted Date Comments Diazepam Vomiting 02/05/2024 Medications montelukast (SINGULAIR) 10 MG tablet Take 1 tablet (10 mg total) by mouth daily. Active venlafaxine XR (EFFEXOR-XR) 150 MG 24 hr capsule Take 1 capsule (150 mg total) by mouth daily. Active hydrOXYzine (VISTARIL) 50 MG capsule Take 1 capsule (50 mg total) by mouth nightly at bedtime. Active gabapentin (NEURONTIN) 300 MG capsule Take 2 capsules (600 mg total) by mouth 2 (two) times daily. Active OXcarbazepine (TRILEPTAL) 300 MG tablet Take 1.5 tablets (450 mg total) by mouth every evening. Active meloxicam (MOBIC) 7.5 MG tablet Take 1 tablet (7.5 mg total) by mouth daily. Active omeprazole (PRILOSEC) 40 MG capsule 1 capsule (40 mg total) 2 (two) times daily. Active atorvastatin (LIPITOR) 40 MG tablet Take 1 tablet (40 mg total) by mouth daily. Active losartan (COZAAR) 100 MG tablet Take 1 tablet (100 mg total) by mouth daily. Active oxyCODONE immediate release (ROXICODONE) 5 MG immediate release tabletIndicatio ns:Acute Pain < 7 Day Supply Take 1 tablet (5 mg total) by mouth every 4 (four) hours as needed for Pain. Indications: Acute Pain < 7 Day Supply 15 tablet 02/06/2024 Active Active Problems Problem Noted Date Diagnosed Date Laceration involving tendon 02/05/2024 Family History Medical History Relation Comments Cancer Maternal Grandfather Early Hearing Loss Maternal Grandfather Early Hearing Loss Maternal Grandmother Stroke Maternal Grandmother Cancer Mother Heart Disease Mother Diabetes Paternal Grandfather Heart Disease Paternal Grandfather Stroke Paternal Grandfather Relation Status Comments Maternal Grandfather Maternal Grandmother Mother Paternal Grandfather Social History Tobacco Use Types Packs/Day Years Used Date Smoking Tobacco: Never Smokeless Tobacco: Never Tobacco Cessation:Counseling Given: Not Answered Alcohol Use Standard Drinks/Week Comments Not Currently 0 (1 standard drink = 0.6 oz pur e alcohol) [facility] Utilities Answer Date Recorded In the past 12 months has th e [employer], gas, oil, or water [email or web address] threatened to shut off services in your home? No 02/05/2024 Humiliation, Afraid, Rape, and Kick questionnair e Answer Date Recorded Within the last year, have y ou been afraid of your partner or ex-partner? No 02/05/2024 Within the last year, have y ou been humiliated or emotionally abused in other ways by your partner or ex-partner? No Within the last year, have y ou been kicked, hit, slapped, or otherwise physically hurt by your partner or ex-partner? No 02/05/2024 Within the last year, have y ou been raped or forced to have any kind of sexual activity by your partner or ex-partner? No 02/05/2024 Overall Financial Resource Strain (CARDIA) Answe r Date Recorded How hard is it for you to pa y for the very basics like food, housing, medical care, and heating? Not hard at all 02/05/2024 Hunger Vital Sign Answer Date Recorded Within the past 12 months, y ou worried that your food would run out before you got the money to buy more. Never true 02/05/20 24 Within the past 12 months, t he food you bought just didn't last and you didn't have money to get more. Never true 02/05/2024 PRAPARE - Transportation Answer Date Re corded In the past 12 months, has l ack of transportation kept you from medical appointments or from getting medications? No 01/24 In the past 12 months, has l ack of transportation kept you from meetings, work, or from getting things needed for daily living? No 02/05/2024 Housing Stability Vital Sign Answer Cristian e Recorded In the last 12 months, was t here a time when you were not able to pay the mortgage or rent on time? No 02/05/2024 In the past 12 months, how m any times have you moved where you were living? 0 02/05/2024 At any time in the past 12 m [facility], were you homeless or living in a jail (including now)? No 02/05/2024 Comments Unknown Sex and Gender Information Value Date Recorded Sex Assigned at Not on file Legal Sex Female 7:50 AM CDT Gender Identity Not on file Sexual Orientation Not on file Last Filed Vital Signs Vital Sign Reading Time Taken Comments Blood Pressure 131/73 02/05/2024 11:20 PM CDT Pulse 63 02/05/2024 11:20 PM CDT Temperature 36.9 C (98.4 F) 02/05/2024 11:20 PM CDT Respiratory Rate 18 02/05/2024 11:20 PM CDT Oxygen Saturation 95% 02/05/2024 11:20 PM CDT Inhaled Oxygen Concentration - - Weight 66.7 kg (147 lb) 02/05/2024 10:28 AM CDT Height 162.6 cm (5' 4) 02/05/2024 10:28 AM CDT Body Mass Index 25.23 02/05/2024 10:28 AM CDT Plan of Treatment Health Maintenance Due Date Last Done Comments Colorectal Cancer Screening Colonoscopy (10 Years) 1971 Annual Physical 1974 Hepatitis C 1989 Hepatitis B Vaccines (1 of 3 - 19+ 3-dose series) 1990 Mammogram Screening 02/19/2020 02/18/2018, 10/15/2015, 10/15/2015 Pneumococcal Vaccine: 50+ Years (1 of 1 - PCV) 2021 Zoster Vaccines (1 of 2) 2021 COVID-19 Vaccine (1 - 2023-2 5 season) 2023 DTaP, Tdap and Td Vaccines ( 2 - Td or Tdap) 11/20/2027 11/19/2017 Meningococcal B Vaccine Aged Out No l onger eligible based on patient's age to complete this topic Meningococcal Vaccine Aged Out No kenji elizabeth eligible based on patient's age to complete this topic RSV Immunizations Under 20 Months Aged Out No longer eligible b ased on patient's age to complete this topic Insurance [employer] * Full Code (Latest Code Status on File) Date Activated Date Inactivated Comments 02/05/2024 4:37 PM 02/06/2024 12:05 PM Care Teams Profile Saw Setup Operator Relationship Specialty Start Date End Date None, Provider, PCP - General UNKNOWN PHYSICIAN SPECIALTY 02/05/24
--- OUTSIDE RECORDS SUMMARY | 2024-11-08 16:09 | XMS_ITS | Clinical Summary ---
Author Organization [facility] Address [address] [place] [address] Phone Care Team Providers Care Forest Nursery Supervisor Name Role Phone Driss Lee MD Primary Care Provider [phone] Allergies Active Allergy Reactions Criticality Noted Date Comments Diazepam Other (see Comments) 11/19/2017 Makes her queezy Medications LAMOTRIGINE PO Take by mouth. Active BUPROPION HCL PO Take by mouth. Active OMEPRAZOLE PO Take by mouth. Active traMADol (ULTRAM) 50 MG Tablet Take 1 Tab by mouth every 6 hours as needed for Moderate or more severe pain. 15 Tab 11/19/2017 Active GABAPENTIN PO Take 1,200 mg by mouth daily. Active CYCLOBENZAPRINE HCL PO Take by mouth. Active MONTELUKAST SODIUM PO Take by mouth. Active ATORVASTATIN CALCIUM PO Take by mouth. Active DICLOFENAC PO Take by mouth. Active Immunizations Immunization Administration Dates Next Due TDAP Vaccine 11/19/2017 Social History Tobacco Use Types Packs/Day Years Used Date Smoking Tobacco: Former Smokeless Tobacco: Never Alcohol Use Standard Drinks/Week Comments No 0 (1 standard drink = 0.6 oz pur e alcohol) Comments No Sex and Gender Information Value Date Recorded Sex Assigned at Not on file Legal Sex Female 9:19 PM CDT Gender Identity Not on file Sexual Orientation Not on file Last Filed Vital Signs Vital Sign Reading Time Taken Comments Blood Pressure 148/81 08/03/2018 3:27 PM CDT Pulse 67 08/03/2018 3:27 PM CDT Temperature 36.3 C (97.4 F) 08/03/2018 3:27 PM CDT Respiratory Rate 20 08/03/2018 3:27 PM CDT Oxygen Saturation 100% 08/03/2018 3:27 PM CDT Inhaled Oxygen Concentration - - Weight 62.6 kg (138 lb) 08/03/2018 3:27 PM CDT Height 164.5 cm (5' 4.75) 08/03/2018 3:27 PM CD T Body Mass Index 23.14 08/03/2018 3:27 PM CDT Plan of Treatment Health Maintenance Due Date Last Done Comments Hepatitis C Virus (HCV) Screening 1971 Hepatitis B Immunization (1 of 3 - 19+ 3-dose series) 1990 Cologuard 02/08/2016 Colonoscopy 02/08/2016 Colorectal Cancer Screening 02/08/2016 Immunochemical Fecal Occult Blood 02/08/2016 Pneumococcal Immunization (5 0+ years) (1 of 1 - PCV) 2021 Zoster Immunization (1 of 2) 2021 SARS-COV-2 Immunization (1 - 2023- season) 2023 Influenza Immunization (#1) 2024 Respiratory Syncytial Virus (RSV) Immunization (Adult) (1 - 1-dose 75+ series) 2046 DTaP/Tdap/Td Immunization Discontinued 11/19/2017 Discussion re Starting/Frequency of Mammograms Discontinued 02/18/2018, 10/15/2015 Mammogram Discontinued 02/18/2018, 10/15/2015 Human Papillomavirus (HPV) Immunization Aged Out No longer eligible based on patient's age to complete this topic Meningococcal Immunization (ACWY) Aged Out No longer eligible based on patient's age to complete this topic Rotavirus Immunization Aged Out No lo nger eligible based on patient's age to complete this topic Procedures Procedure Name Priority Date/Time Associated Diagnosis Comments [facility] SCREENING BILATERAL DIGITAL W CAD W JUNIE Routine 02/18/2018 3:26 PM CDT Screening breast examination from Last 3 Months or Most Recently Relevant to Health Maintenance Results * [facility] SCREENING BILATERAL DIGITAL W CAD W JUNIE (02/18/2018 3:26 PM CDT) Anatomical Region Laterality Modality breast Bilateral Mammography 02/18/2018 3:04 PM CDT Narrative 02/19/2018 8:51 AM CDT - [facility] SCREENING BILATERAL DIGITAL W CAD W JUNIE BILATERAL DIGITAL SCREENING MAMMOGRAM 3D/2D WITH CAD WITH MEDIOLATERAL OBLIQUE CRANIOCAUDAL: 02/18/2018 The study was acquired using digital technology and interpreted from soft copy. Current study was also evaluated with ICAD version 7.2. CLINICAL: Routine screening. RMLO was repeated due to a skin fold. Patient has cystic breasts and complaints of bilateral breast pain. Personal history of cervical cancer. No family history of breast cancer. COMPARISONS: Comparison is made to exams dated: 10/15/2015 and 06/09/2011 [facility]. BREAST TISSUE:The tissue of both breasts is heterogeneously dense. This may lower the sensitivity of mammography. FINDINGS: No significant masses, calcifications, or other findings are seen in either breast. There has been no significant interval change. IMPRESSION: BI-RAD 1 NEGATIVE There is no mammographic evidence of malignancy. A 1 year screening mammogram is recommended. The patient has been or will be contacted. The patient will be entered into a reminder system with a target due date of 1 year for her next screening exam. Electronically signed by: Bethany dewitt/tiffany:02/18/2018 16:38:29 Diesel Locomotive Firer: Natasha CLEMENTS)(Geo), [facility] letter sent: Normal Exam Reading location: [facility] BI-RADS: 1 Negative Procedure Note Bethany Rodriguez MD - 02/19/2018 - [facility] SCREENING BILATERAL DIGITAL W CAD W JUNIE BILATERAL DIGITAL SCREENING MAMMOGRAM 3D/2D WITH CAD WITH MEDIOLATERAL OBLIQUE CRANIOCAUDAL: 02/18/2018 The study was acquired using digital technology and interpreted from soft copy. Current study was also evaluated with ICAD version 7.2. CLINICAL: Routine screening. RMLO was repeated due to a skin fold. Patient has cystic breasts and complaints of bilateral breast pain. Personal history of cervical cancer. No family history of breast cancer. COMPARISONS: Comparison is made to exams dated: 10/15/2015 and 06/09/2011 [facility]. BREAST TISSUE:The tissue of both breasts is heterogeneously dense. This may lower the sensitivity of mammography. FINDINGS: No significant masses, calcifications, or other findings are seen in either breast. There has been no significant interval change. IMPRESSION: BI-RAD 1 NEGATIVE There is no mammographic evidence of malignancy. A 1 year screening mammogram is recommended. The patient has been or will be contacted. The patient will be entered into a reminder system with a target due date of 1 year for her next screening exam. Electronically signed by: Bethany dewitt/tiffany:02/18/2018 16:38:29 Diesel Locomotive Firer: Natasha ALMANZAR(Aguilar)(M), [facility] letter sent: Normal Exam Reading location: [facility] BI-RADS: 1 Negative us Sonia Gonzalez MD IMG MAMMO ORDERABLES Fin al Result from Last 3 Months or Most Recently Relevant to Health Maintenance Insurance [employer]ICA[employer] Care Teams Forest Nursery Supervisor Relationship Specialty Start Date End Date Driss Lee MD [address] [place] [address] PCP - General Family Medicine 02/18/18
== END 2024-11-08 16:04 | disposition home or self-care (01) ==
PROVIDERS: PCP Nurse Practitioner Family
DX: K59.04 Chronic idiopathic constipation (principal)
CPT/HCPCS: 74019

== ENCOUNTER 2024-11-10 13:50 | Outpatient (CLI) | payer MEDICAID, SELFPAY ==
--- NOTE | ~2024-11-10 | XR_ITS ---
XR abdomen/kub 1V 11/10/2024 14:03 INDICATION: Chronic idiopathic constipation TECHNIQUE: KUB COMPARISON: None FINDINGS: Bowel gas pattern is normal. There is no evidence of free air, mass, organomegaly, ascites or obstruction. No abnormal calculi are seen. The bones appear intact. Severe lumbar spondylosis. IMPRESSION: 1: No acute abdominal abnormality identified. Reviewed, dictated and finalized at location B.
--- OUTSIDE RECORDS SUMMARY | 2024-11-10 13:55 | XMS_ITS | Clinical Summary ---
Author Organization [facility] Address [address] [place] [address] Care Team Providers Care Wire Technician Name Role Phone None, Provider MD Primary [...] drink = 0.6 oz pur e alcohol) [facility] Utilities Answer Date Recorded In the past 12 months has th e [employer], gas, oil, or water [employer] threatened to shut off services in your [...] any time in the past 12 m [facility] [place], were you homeless or living in a longterm (including now)? No 02/05/2024 Comments Unknown Sex [...] 4:37 PM 02/06/2024 12:05 PM Care Teams Wire Technician Relationship Specialty Start Date End Date None, Provider, PCP - General UNKNOWN PHYSICIAN SPECIALTY 02/05/24
--- OUTSIDE RECORDS SUMMARY | 2024-11-10 13:55 | XMS_ITS | Clinical Summary ---
Author Organization [facility] Address [address] [place] [address] Care Team Providers Care Reuse Technician Name Role Phone Jose Saldaña NP Primary Care Provider [phone] Allergies Active Allergy Reactions Criticality Noted Date [...] Description 11/02/2024 2:00 PM CDT Office Visit [facility] [address]nd [address] [place] [address] Leonidas Pedersen MD Chronic idiopathic constipation (Primary Dx); Rectal prolapse 11/02/2024 Orders Only [facility] [address] [place] [address] Leonidas Pedersen MD Chronic idiopathic constipation (Primary [...] on file Legal 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
--- OUTSIDE RECORDS SUMMARY | 2024-11-10 13:55 | XMS_ITS | Referral Summary ---
Author Organization [facility] Address [address] [place] [address] Care Team Providers Care Canteen Operator Name Role Phone Jose Saldaña NP Primary Care Provider [phone] Encounters Date Type Department Care Team Description 11/02/2024 Orders Only [facility] [address] [place] [address] Leonidas Pedersen MD Chronic idiopathic constipation (Primary Dx) 11/02/2024 2:00 PM CDT Office Visit [facility] [address] [place] [address] Leonidas Pedersen MD Chronic idiopathic constipation (Primary [...] on file Legal Sex 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
--- OUTSIDE RECORDS SUMMARY | 2024-11-10 13:55 | XMS_ITS | Data Portability ---
Author Organization [facility] Address [address] [place] [address] Care Team Providers Care Registered Diet Technician Name Role Phone WALKER MERCEDES Network Technician Assessment No assessment recorded. Plan of Treatment Reminders Order Date Submit Date Provider Last Modified By Organization Details Last Modified Time Details Appointments None recorded. Lab cytology report, thin prep, smear or scraping, cervical or vaginal 2020 021 [facility], [address] [place] [address] 2, [place], [address], 1 10:36:28 HIV 1+2 AB + HIV 1 p24 Ag, qualitative immunoassay , serum 2020 021 [facility], [address] [place] [address], [facility] 2, [place], [address], 07:37:28 RPR (rapid plasma reagin), serum 2020 021 [facility], [address] [place] [address], [facility] 2, [place], [address], 07:37:28 HBsAg (hepatitis B surface Ag), EIA, serum 2020 021 [facility], [address] [place] [address], [facility] 2, [place], [address], 07:37:29 hepatitis C Ab, signal-to-c utoff, serum or plasma 2020 021 [facility], [address] [place] [address], [facility] 2, [place], [address], 1 07:37:27 bacterial vaginosis + vaginitis panel, vaginal 2019 020 [facility], [address] [place] [address], [place], [address], 0 08:37:43 RPR (rapid plasma reagin), serum 2018 019 [facility], [address] [place] [address], [place], [address], 0 07:36:57 HIV 1+2 AB + HIV 1 p24 Ag, qualitative immunoassay , serum 2018 019 [facility], [address] [place] [address] 2, [place], [address], 0 07:36:58 bacterial vaginosis + vaginitis panel, vaginal 2018 019 [facility], [address] [place] [address], [place], [address], 9 18:35:29 Referral None recorded. Procedures None recorded. Surgeries None recorded. Imaging MAMMO, screening, digital, bilateral 2020 021 [facility] (Imaging), [address] [place] [address] [address], [place], [address], 1 16:24:29 MAMMO, screening, digital, bilateral 2018 019 [email or web address] 23 [facility] (Scheduling), [address] [place], [address], 9 10:03:14 MAMMO, screening, digital, bilateral 2017 018 [facility] (Scheduling), [address] [place], [address], 8 11:53:06 Medication Orders estradiol 0.05 mg/24 hr weekly transdermal patch 2020 021 [email or web address] 23 [facility], [address] [place] [address], [address], 09:39:29 Patient TargetsNo targets recorded. Patient Instructions Encounter Date Encounter Id Patient Instructions Last Modified By Organization Details Last Modified Time 01/17/2018 [id number] learning about breast cancer screening [email or web address] Not available 01/17/2018 08:59:57 03/09/2019 [id number] learning about breast cancer screening Not available 03/09/2019 10:03:07 11/07/2020 [id number] learning about breast cancer screening Not available 11/07/2020 09:39:29 Reason for Referral None Reported. Results Created Date Observation Date Name Description Value Unit Range Abnormal Flag Note LastModifiedBy Organization Detail LastModifiedTime 03/09/2003/11/2019 bacte rial vagin osis + vagin itis panel , vagin al trich vag by SCOTT Negati ve negati ve Not Available [facility] ([facility]) [address] [place], [address], 03/12/2019 18:35:29 03/09/20 19 03/11/2019 bacte rial vagin osis + vagin itis panel , vagin al chlamydia trachomatis, SCOTT Negati ve negati ve Not Available [facility] ([facility]) [address] [place], [address], 03/12/2019 18:35:29 03/09/20 19 03/11/2019 bacte rial vagin osis + vagin itis panel , vagin al neisseria gonorrhoeae, SCOTT Negati ve negati ve Not Available [facility] ([facility]) [address] [place], [address], 03/12/2019 18:35:29 03/09/20 19 03/12/2019 bacte rial vagin osis + vagin itis panel , vagin al atopobium vaginae Low - 0 score Not Available [facility] ([facility]) [address] [facility], [place], [address], 03/12/2019 18:35:29 03/09/20 19 03/12/2019 bacte rial vagin osis + vagin itis panel , vagin al bvab 2 Low - 0 score Not Available [facility] ([facility]) [address] [facility], [place], [address], 03/12/2019 18:35:29 03/09/20 19 03/12/2019 bacte rial [...] devel oped and its perfo rmanc e isaeblla cteri stics deter mined by [facility]. It has not been clear ed or appro edmar by the Food and Drug Admin istra tion. The FDA has deter mined that such clear ance or appro barbara is not neces yaya. Not Available [facility] ([facility]) [address] [facility], [place], [address], 03/12/2019 18:35:29 03/09/20 19 03/12/2019 bacte rial vagin osis + vagin itis panel , vagin al doni albicans, SCOTT Negati ve negati ve Not Available [facility] ([facility]) [address] [facility], [place], [address], 03/12/2019 18:35:29 03/09/20 19 03/12/2019 bacte rial [...] is not neces yaya. Not Available [facility] ([facility]) [address] [place], [address], 03/12/2019 18:35:29 10/03/19 20 10/04/2019 RPR (rapi d plasm a reagi n), serum RPR Non Reacti ve non reacti ve Not Available [facility] ([facility]) [address] [place], [address], 10/04/2019 07:36:57 10/03/1910/04/2019 HIV 1+2 AB + HIV 1 p24 Ag, quali tativ e immun oassa y, serum HIV screen 4TH generation wrfx Non Reacti ve non reacti ve Not Available [facility] ([facility]) [address] [place], [address], 10/04/2019 07:36:58 11/22/19 20 11/28/2019 bacte rial vagin osis + vagin itis panel , vagin al atopobium vaginae Modera te - 1 score Not Available [facility] ([facility]) [address] [place], [address], 11/28/2019 08:37:43 11/22/1911/28/2019 bacte rial vagin osis + vagin itis panel , vagin al bvab 2 Low - 0 score Not Available [facility] ([facility]) [address] [place], [address], 11/28/2019 08:37:43 11/22/1911/28/2019 bacte rial vagin osis [...] is not neces yaya. Not Available [facility] ([facility]) [address] [place], [address], 11/28/2019 08:37:43 11/22/19 20 11/28/2019 bacte rial vagin osis + vagin itis panel , vagin al doni albicans, SCOTT Negati ve negati ve Not Available [facility] ([facility]) [address] [place], [address], 11/28/2019 08:37:43 11/22/19 20 11/28/2019 bacte rial vagin osis + vagin itis panel , vagin al doni glabrata, SCOTT Negati ve negati ve Not Available [facility] ([facility]) [address] [place], [address], 11/28/2019 08:37:43 11/22/1911/28/2019 bacte rial vagin osis + vagin itis panel , vagin al trich vag by SCOTT Negati ve negati ve Not Available [facility] ([facility]) [address] [place], [address], 11/28/2019 08:37:43 11/22/19 20 11/28/2019 bacte rial vagin osis + vagin itis panel , vagin al chlamydia trachomatis, SCOTT Negati ve negati ve Not Available [facility] ([facility]) [address] [facility], [place], [address], 11/28/2019 08:37:43 11/22/19 20 11/28/2019 bacte rial vagin osis + vagin itis panel , vagin al neisseria gonorrhoeae, SCOTT Negati ve negati ve Not Available [facility] ([facility]) [address] [facility], [place], [address], 11/28/2019 08:37:43 11/08/19 21 11/08/2020 HCV ANTIB AMANDA RFX TO QUANT PCR HCV Ab <0.1 s/co_ ratio 0.0-0. 9 Not Available [facility] ([facility]) [address] [facility], [place], [address], 11/08/2020 07:37:27 11/08/19 21 11/08/2020 HCV ANTIB AMANDA RFX TO QUANT PCR interpretati on: Commen t Negat javon Not infec chelsea with HCV, unles s recen t infec tion is suspe cted or other evide nce exist s to indic ate HCV infec tion. Not Available [facility] ([facility]) [address] [facility], [place], [address], 11/08/2020 07:37:27 11/08/19 21 11/08/2020 RPR, RFX QN RPR/C ONFIR M TP RPR Non Reacti ve non reacti ve Not Available [facility] ([facility]) [address] [facility], [place], [address], 11/08/2020 07:37:28 11/08/19 21 11/08/2020 HIV AG/AB WITH REFLE X HIV screen 4TH generation wrfx Non Reacti ve non reacti ve Not Available [facility] ([facility]) [address] [facility], [place], [address], 11/08/2020 07:37:28 11/08/19 21 11/08/2020 HBSAG SCREE N HBsAg screen Negati ve negati ve Not Available [facility] ([facility]) [address] [place], [address], 11/08/2020 07:37:29 11/08/19 21 11/09/2020 IGP,C TNGTV ,APT HPV,R FX16/ 18,45 chlamydia, nuc. acid amp Negati ve negati ve Not Available [facility] ([facility]) [address] [place], [address], 11/11/2020 10:36:27 11/08/19 21 11/09/2020 IGP,C TNGTV ,APT HPV,R FX16/ 18,45 gonococcus, nuc. acid amp Negati ve negati ve Not Available [facility] ([facility]) [address] [facility], [place], [address], 11/11/2020 10:36:27 11/08/19 21 11/09/2020 IGP,C TNGTV ,APT HPV,R FX16/ 18,45 trich vag by SCOTT Negati ve negati ve Not Available [facility] ([facility]) [address] [place], [address], 11/11/2020 10:36:27 11/08/19 21 11/10/2020 IGP,C TNGTV ,APT HPV,R FX16/ 18,45 HPV aptima Negati ve negati ve This nucle ic acid ampli ficat ion test detec ts fourt een high- risk HPV types (16,1 8,31, 33,35 ,39,4 5,51, 52,56 ,58,5 9,66, 68) witho ut diffe renti ation . Not Available [facility] ([facility]) [address] [place], [address], 11/11/2020 10:36:27 11/08/19 21 11/11/2020 IGP,C TNGTV ,APT HPV,R FX16/ 18,45 diagnosis: Yuri TO FOR INTRA EPITH ELIAL LESIO N OR AUBREE HOLLOWAYCY . Not Available [facility] ([facility]) [address] [facility], [place], [address], 11/11/2020 10:36:27 11/08/19 21 11/11/2020 IGP,C TNGTV ,APT HPV,R FX16/ 18,45 specimen adequacy: Yuri rizvi Satis facto ry for evalu ation . No endoc ervic al compo nent is ident ified . Not Available [facility] ([facility]) [address] [facility], [place], [address], 11/11/2020 10:36:27 11/08/1911/11/2020 IGP,C TNGTV ,APT HPV,R FX16/ 18,45 clinician provided ICD10: Yuri rizvi Z01.4 19 Not Available [facility] ([facility]) [address] [facility], [place], [address], 11/11/2020 10:36:27 11/08/19 21 11/11/2020 IGP,C TNGTV ,APT HPV,R FX16/ 18,45 performed by: Yuri donaldson, José Antonio rizvi Not Available [facility] ([facility]) [address] [place], [address], 11/11/2020 10:36:27 11/08/1911/11/2020 IGP,C TNGTV ,APT HPV,R FX16/ 18,45 . . Not Available [facility] ([facility]) [address] [place], [address], 11/11/2020 10:36:27 11/08/19 21 11/11/2020 IGP,C TNGTV [...] ts do occur . Not Available [facility] ([facility]) [address] [facility], [place], [address], 11/11/2020 10:36:27 11/08/1911/11/2020 IGP,C TNGTV ,APT HPV,R FX16/ 18,45 test methodology: Commen t This liqui d based ThinP rep(R ) pap test was scree harrsion with the use of an image guide darrin crum. Not Available [facility] ([facility]) [address] [facility], [place], [address], 11/11/2020 10:36:27 01/21/20 18 10/15/2015 MAMMO , diagn ostic , bilat eral No observ ation record ed. BARCODE Not Available 2017 14:21:18 01/21/20 18 10/15/2015 US, neftaly t, bilat eral, limit ed No observ ation record ed. BARCODE Not Available 2017 14:21:18 02/20/20 18 02/18/2018 MAMMO , scree willy, digit al, bilat eral No observ ation record ed. [email or web address] Not Available 03/15 09:17:27 12/27/1912/25/2020 MAMMO , scree willy, digit al, bilat eral No observ ation record ed. [email or web address] [facility] [address] [place] [address], [place], [address], 12/31/2020 16:44:05 Result Notes None recorded. Problems Name Problem SNOMED Code Status Onset Date Resolution Date Notes Provider Name and Address Organization Details Recorded Time Hypercholestero lemia 45338955 Active Merced Flores RN [facility], [facility] 6 17:03:58 Menopausal symptom 18012620 Active Merced Flores RN null, [facility] 6 17:03:58 Candidal vulvovaginitis 48084672 Active Merced Flores RN [facility], [facility] 6 17:03:58 Problem Notes None recorded. Procedures Surgical History Date Name Laterality Status Provider Name and Address Organization Details Recorded Time 11/08/19 21 Date of Last Pap Smear completed Rylee Adam MA [facility] 11/14/2020 10:49:39 02/29/20 19 colonoscopy completed Rylee Thomasford [facility] 03/09/2019 09:26:19 02/19/20 18 Most Recent Mammogram completed Rylee Thomasford [facility] 03/09/2019 09:22:01 04/26/19 16 Other completed Rylee Adam [facility] 01/17/2018 08:35:48 04/26/19 15 Other completed Rylee Adam [facility] 01/04/2017 11:45:36 04/26/19 03 Hysterectomy completed Walker Mercedes [facility] 11/07/2020 09:19:37 04/26/18 91 Caesarean Section completed Rylee Thomasford [facility] 10/24/2015 09:03:53 Tonsillectomy completed Rylee Thomasford [facility] 10/24/2015 09:03:53 Imaging Results None recorded. Procedure Notes None recorded. Medical Equipment None Reported. Allergies Allergen ID Allergen Name Allergen Category Reaction Reaction Severity Criticality Documentation Date Start Date Code Code System Note Provider Name and Address Organization Details Recorded Time 72790 Valium medicatio n nausea Not available Not available 01/12/2017 2 RxNorm Rylee Thomasford mary [facility] 7 09:03:17 Medications Name Sig Start Date [...] Updated DateTime 11/07/2020 162.56 cm 25.7 kg/m2 04977.5 g 130/98 mm[Hg] Rylee Adam [facility] 11/07/2020 09:07:20 Date Recorded Body height Provider Name an d Address Organization Details Last Updated DateTime 11/14/2020 162.56 cm Rylee Adam [facility] 11/14 10:49:09 Date Recorded Body height Body mass index (BMI) Body weight Systolic And Diastolic Provider Name and Address Organization Details Last Updated DateTime 11/22/2019 162.56 cm 24.8 kg/m2 48740.38 g 130/100 mm[Hg] Rylee Adam [facility] 11/22/2019 15:57:38 Date Recorded Body weight Body mass index (BMI) Body height Systolic And Diastolic Provider Name and Address Organization Details Last Updated DateTime 01/17/2018 31768.26 g 25.6 kg/m2 162.56 cm 124/90 mm[Hg] [facility] 08:31:22 Date Recorded Body weight Body mass index (BMI) Body height Systolic And Diastolic Provider Name and Address Organization Details Last Updated DateTime 03/09/2019 93776.4 g 26.1 kg/m2 162.56 cm 130/84 mm[Hg] [facility] 03/09/2019 09:15:41 Social History Question Answer Notes LastModified by Organizat ion Details LastModified Time Tobacco Smoking Status Former Smoker quit 2013 Not Available [employer] 02/27/2020 03:43:21 Is Blood Transfusion Acceptable In An Emergency? Yes [id number] Information not available 02/27/2020 What Is Your Level Of Caffeine Consumption? Heavy [id number] Information not available 02/27/2020 How Much Tobacco Do You Chew? None [id number] Information not available 02/27/2020 In The 14 [...] Type Of Diet Are You Following? REGULAR [id number] Information not available 02/27/2020 Which Illicit Or Recreational Drugs Have You Used? Marijuanna [id number] Information not available 02/27/2020 Education 12 Some College Information not available 01/04/2017 What Is The Highest Grade Or Level Of School You Have Completed Or The Highest Degree You Have Received? [id number] Information not available 11/07/2020 Live Alone Or With Others? With Others Information not available 10/24/2015 What Was The Date Of Your Most Recent Tobacco Screening? 11/22/2019 [id number] Information not available 02/27/2020 How Many Children Do You Have? 1 [id number] Information not available 02/27/2020 Performs Monthly Self-breast Exam? No Information no t available 10/24/2015 Do You Use Protection During Sex? Usually [id number] Information not available 02/27/2020 What Is Your Relationship Status? Single [id number] Information not available 02/27/2020 Do You Use Your Seat Belt Or Car Seat Routinely? Yes Information not available 11/07/2020 Seat Belts Used Routinely Yes Information not available 10/24/2015 Are You Sexually Active? No Information not available 11/07/2020 At What Age Did You Start Smoking Tobacco? 12 [id number] Information not available 02/27/2020 How Much Tobacco Do You Smoke? No [id number] Information not available 02/27/2020 General Stress Level High Information not available 10/24/2015 Do You Use Sunscreen Routinely? Yes [id number] Information not available 02/27/2020 How Many Years Have You Smoked Tobacco? 31 [id number] Information not available 02/27/2020 Sex: Female Functional Status Question Answer Note LastModified by Organizat ion Details LastModified Time Do you use any illicit or recreational drugs? Yes Information not available 11/07/2020 Do you or have you ever used any other forms of tobacco or nicotine? No Information not available 11/07/2020 What is your level of alcohol consumption? None [id number] Information not available 02/27/2020 Are you currently employed? Yes [id number] Information not available 02/27/2020 What is your exercise level? Heavy [id number] Information not available 02/27/2020 Mental Status Question Answer Note LastModified by Organization D etails LastModified Time Do you feel stressed (tense, restless, nervous, or anxious, or unable to sleep at night)? [id number] Information not available 11/07/2020 Family History Relationship Description Onset Age of this Age Resolved Age Notes LastModified by Organization Details LastModified Time Father Heart disease [email or web address] Not available 11/17 17:03:58 Father Hypercholest erolemia [email or web address] Not available 11/17 17:03:58 Father Hypertensive disorder [email or web address] Not available 11/07 09:12:53 Mother Heart disease [email or web address] Not available 11/17 17:03:58 Mother Hypercholest erolemia [email or web address] Not available 11/17 17:03:58 Mother Hypertensive disorder [email or web address] Not available 11/07 09:12:58 Paternal Grandfather Heart disease [email or web address] Not available 11/17 17:03:58 Paternal Grandfather Hypertensive disorder [email or web address] Not available 11/17 17:03:58 Paternal Grandfather Diabetes mellitus Not available 11/17 17:03:58 Paternal Grandfather Hypercholest erolemia [email or web address] Not available 11/17 17:03:58 Paternal Grandmother Heart disease [email or web address] Not available 11/17 17:03:58 Paternal Grandmother Malignant neoplasm of lung [email or web address] Not available 11/17 17:03:58 Maternal Grandmother Heart disease Not available 11/17 17:03:58 Maternal Grandmother Cerebrovascu lar accident [email or web address] Not available 17:03:58 Maternal Grandmother Hypertensive disorder [email or web address] Not available 11/17 17:03:58 Maternal Grandmother Hypercholest erolemia [email or web address] Not available 11/17 17:03:58 Maternal Grandfather Malignant tumor of pharynx [email or web address] Not available 11/17 17:03:58 Maternal Grandfather Hypertensive disorder [email or web address] Not available 11/17 17:03:58 Medical History Condition [...] SNOMED-CT Code Diagnosis ICD10 Code Diagnosis Note [id number] MD Maya Jean-Baptiste ([facility]) [address] [place] [address] 10/24/2015 08:30:03 10/29/2015 15:01:35 Gynecologic examination 46768501 Z01.419 Venereal d isease screening 348336330 Z11.3 Pt. is getting hepatitis panel with GI physician. HIV and RPR ordered. RTO one week for results Screening for malignant neoplasm of breast 944378814 Z12.39 Menopausal symptom 73533 002 N95.1 Benefits, risks, and alternativ es to HT d/w pt. Pt. desires HT. Rx sent to pharmacy. Instructdebra tirado discussed. Candidal vulvovaginitis 67558251 B37.3 Diagnosis d/w pt. Rx sent to pharmacy. Instructdebra tirado discussed. [id number] [facility] [address] [place] [address] 11/18/2015 16:44:09 11/19/2015 08:03:13 Gynecologic examination 35342150 Z01.419 Pap done 10/24/15 was negative with negative hr-HPV, dwp. RTO PRN + one year for AE. Venereal d isease screening 621456189 Z11.3 HIV was negative. Syphilis testing was also negative. Vaginal culture was negative for gonorrhea, chlamydia, and trichomona s, dwp. [id number] [facility] [address] [place] [address] 01/04/2017 11:29:31 06/09/2017 18:25:17 Candidal vulvovaginitis 38622834 B37.3 Diagnosis d/w pt. Rx sent to pharmacy. Instructdebra tirado discussed. Vaginal discharge 021275 006 N89.8 Pt. to call for results in one week. [id number] [facility] [address] [place] [address] 01/12/2017 08:49:42 01/12/2017 12:45:17 Gynecologic examination 92702675 Z01.419 Last pap done 10/24/15 was negative with negative hr-HPV. Therefore, no pap needed. Screening for malignant neoplasm of breast 916372620 Z12.39 Tinea corporis 43004773 B35.4 Vaginal infection into skin of vulva. Diagnosis d/w pt. Rx sent to pharmacy. Instructdebra tirado discussed. [id number] MD Maya Jean-Baptiste ([employer]) [address] [place] [address] 01/17/2018 08:11:48 01/18/2018 10:07:26 Gynecologic examination 02012019 Z01.419 Pt had hysterecto my for abnormal cervical cells.Last pap done 10/24/15 was negative with negative hr-HPV. Therefore, no pap needed. Screening for malignant neoplasm of breast 226018467 Z12.39 Last mammogram 10/15/15 [id number] MD Myaa Jean-Baptiste ([employer]) [address] [place] [address] 03/09/2019 08:50:19 03/10/2019 10:25:11 Gynecologic examination 90072181 Z01.419 Pt had hysterecto my for abnormal cervical cells.Last pap done 10/24/15 was negative with negative hr-HPV. Therefore, no pap needed. Venereal d isease screening 285361947 Z11.3 RTO one week for results. Screening for malignant neoplasm of breast 880355905 Z12.39 UTD. [id number] MD Leonie Jean-Baptistehalto ([employer]) [address] [place] [address] 11/22/2019 15:47:09 11/23/2019 05:58:10 Venereal disease screening 857074186 Z11.3 RPR and HIV were negative, dwp. Pt. already had negative Hep B and Hep C tests with another doctor. Vaginal culture obtained. Exam normal, dwp. Will call pt. with results of culture. Vaginal irritation 14543 6004 N89.8 Possible due to trauma during intercours e. More likely skin irritation from own secretions . Option of lidocaine jelly vs antihistam inocencia discussed. Pt. will tolerate it for now, await culture. [id number] MD Leonie Jean-Baptistehalto ([facility]) [address] [place] [address] 11/07/2020 08:50:54 11/07/2020 19:33:20 Gynecologic examination 30439951 Z01.419 Pt had hysterecto my for abnormal cervical cells.Last pap done 10/24/15 was negative with negative hr-HPV. Therefore, pap due. Pap done. Venereal d isease screening 904391596 Z11.3 Telephone visit one week for results. Menopausal symptom 60856 002 N95.1 Benefits, risks, and alternativ es to HT d/w pt. Pt. desires HT. Rx sent to pharmacy. Desean tirado discussed. Screening for malignant neoplasm of breast 008644494 Z12.39 Last 2017. Mammogram ordered. [id number] MD Maya Jean-Baptiste ([employer]) [address] [place] [address] 11/14/2020 08:07:58 11/15/2020 06:22:27 Gynecologic examination 14756288 Z01.419 Pt had hysterecto my for abnormal cervical cells.Pap done 11/07/20 was negative with negative hr-HPV, dwp. Venereal d isease screening 857072403 Z11.3 Vaginal culture was negative for gonorrhea, [...] Collado Member ID Guarantor Name 12/12/2021 1 [facility] ON OR AFTER 10/24/20 (MEDICAID REPLACEMENT - HMO) Penny Quinn [id number] Penny Quinn 11/07/2020 1 [facility] PRIOR TO 10/24/2020 (MEDICAID REPLACEMENT - HMO) Penny Kai [id number] Penny Quinn Notes Date Note Type Note [...] regular mammograms starting age 41 Walker hernandez [place] - SIF 01/17/2018 09:41:21 03/09/2019 text/html Annual [...] 41; Needs to schedule mammogram Walker hernandez [facility] 03/09/2019 10:06:19 11/22/2019 text/html Pt. presents wit h c/o bumps in her vagina and discomfort when working out. It feels like irritation and burning. Walker hernandez [facility] 11/22/2019 16:27:08 11/07/2020 text/html Annual GYNReport ed [...] 41; Needs to schedule mammogram Walker hernandez [facility] 11/07/2020 09:41:43 11/14/2020 text/html Telephone visit due to COVID-19 pandemic. Pt. called with results of pap and STD testing. She has no complaints. Walker hernandez [facility] 11/14/2020 10:53:59 OBGyn Episode Ob Episode Information Episode Created Date Number of Fetuses Patient Bloodtype Patient rh Status Prepregnancy Weight lbs Domestic Partner Domestic Partner Phone Father Name Cook'S Assistant Status 10/24/19 16 1 CLOSED Fetus Data First Name Last Name Admitted to NICU Weight (g) Sex Living Outcome Pediatric Complications Fetus ID Race Codes Race Delivery Type 3515.33 8 F Full Term [id number] Damian Calculation Initial Damian Date Initial Exam [...]
--- OUTSIDE RECORDS SUMMARY | 2024-11-10 13:56 | XMS_ITS | Continuity of Care Document ---
Author Organization [facility] Address [address] [address] Phone Care Team Providers Care Satellite Technician Name Role Phone Ramakrishna Coyle MD Unavailable Unavailable Allergies, Adverse Reactions, Alerts Substance Reaction Status Criticality No Known Allergies Active No Inform ation Medications Medication Instructions Dosage Effective Dates (start - stop) Status Comments Zocor 20 mg tablet take 1 tablet by ora l route every day in the evening 20 MG - Active Lamisil 250 mg tablet take 1 tablet by o ral route every day - Active Procedures Procedure Date OFFICE/OUTPATIENT VISIT, EST OFFICE/OUTPATIENT VISIT, EST PREV VISIT, NEW, AGE 40-64 OFFICE/OUTPATIENT VISIT, NEW Advance Directives Directive Yes / No Effective Date File Name No Information Encounters Encounter Description Practice Location Reason(s) For Visit Diagnoses Date Provider Providers Copied on Encounter [facility], [address] [place], [place], [id number], tel:[phone] [facility] No Information 6 Leon[facility] [address]. [address] [facility] [place] [place], [address] , [place]. tel:[phone] Referring Provider: Ramakrishna Coyle, [address], [place], [place], [id number]. tel:[phone] OFFICE/OUTPA TIENT VISIT, EST [facility], [address] [place], [place], [address], tel:[phone] [facility] back pain1 (chief complaint) nail fungus (chief complaint) HLP (chief complaint) LFT (chief complaint) Liver diseaseDermatophyto sis of nailLumbagoMixed hyperlipidemia 6 Leonides Durbin. [address], [place], [place], [address] , [place]. [phone] Referring Provider: Ramakrishna Coyle, [address], [place], [place], [address]. tel:[phone] OFFICE/OUTPA TIENT VISIT, [facility], [address], [place], [place], [address], [place] tel:[phone] [facility] Nail fungus1 (chief complaint) HLP (chief complaint) rectal bleeding (chief complaint) LFT (chief complaint) Liver diseaseHyperlipidem iaDermatophytosis of nailOccult blood in stool 6 Leonides Durbin. [address], [place], [place], [address] , [place]. [phone] Referring Provider: Partha [address], [place], [place], [address]. tel:[phone] PREV VISIT, NEW, AGE 40-64 [facility], [address], [place], [place], [address], [place] [phone] [facility] PHysical (chief complaint) Encounter for general adult medical exam w abnormal findingsCarpal tunnel syndrome, left upper limbOccult blood in stoolDermatophytosi s of nail 6 Leonides Durbin. [address], [place], [place], [address] , [place]. [phone] Referring Provider: Partha [address], [place], [place], [address]. tel:[phone] Family History Family Member Type Diagnosis Age At Onset Mother Problem (finding) afib,. sleep apnea Brother Problem (finding) of gun shot wound Brother Problem (finding) Father Problem (finding) afib Payers Payer name Insurance type Covered republican ID Arturo garcia(s) No Information Social History Type Description Quantity [...] Rowell [address] [place], [phone] Ordered: Referrals: Tommy Rowell. Evaluate and treat ordered History Of Present Illness Encounter Date Complaint History Of Prese nt Illness LFT Pt had normal ab d ultraosund and repeat LFT is ok. Pt denies any abd pain or any jaundice HLP Pt has HLP. Pt i s on atkins diet. Pt unable to lower her meat intake nail fungus Pt has right ruben e foot nail fungus. Pt failed OTC meds. No pain back pain1 Pt has chronic l ow [...] any loss of bowel or bladder control LFT Pt has mildly el evated LFT. Pt denies any abd pain or any jaundice. Pt used to drink heavy alcohol but she only drinks socially now rectal bleeding Additional infor mation: Pt has intermittent bright red blood per rectum Pt has appointment with GI in two weeks. Pt denies any abd pain or any dark stool or any worsening symptoms. HLP Pt is on atkins diet. Pt only eats meat and egg, etc. Pt does not eat any carbs. Pt wants to lose weight Nail fungus1 Pt has bilateral toenail fungus. Pt wants to try lamisil. Pt wants to be able to wear sandles in the summer time PHysical Pt needs annual physical. Pt has [...]
--- OUTSIDE RECORDS SUMMARY | 2024-11-10 13:56 | XMS_ITS | Clinical Summary ---
Author Organization [facility] Address [address] [place] [address] Phone Care Team Providers Care Iron Launder Operator Name Role Phone Driss Lee MD Primary Care Provider [phone] Allergies Active Allergy Reactions Criticality Noted Date [...] Procedure Name Priority Date/Time Associated Diagnosis Comments [facility] SCREENING BILATERAL DIGITAL W CAD W JUNIE Routine 02/18/2018 3:26 PM CDT Screening breast examination from Last 3 Months or Most Recently Relevant to Health Maintenance Results * [facility] SCREENING BILATERAL DIGITAL W CAD W JUNIE (02/18/2018 3:26 PM CDT) Anatomical Region Laterality Modality breast Bilateral Mammography 02/18/2018 3:04 PM CDT Narrative 02/19/2018 8:51 AM CDT - [facility] SCREENING BILATERAL DIGITAL W CAD W JUNIE [...] made to exams dated: 10/15/2015 and 06/09/2011 [facility]. BREAST TISSUE:The tissue of both breasts is [...] exam. Electronically signed by: Bethany dewitt/tiffany:02/18/2018 16:38:29 Sight Effects Specialist: Natasha CLEMENTS)(Geo), [facility] letter sent: Normal Exam Reading location: [facility] BI-RADS: 1 Negative Procedure Note Bethany Rodriguez MD - 02/19/2018 - [facility] SCREENING BILATERAL DIGITAL W CAD W JUNIE [...] made to exams dated: 10/15/2015 and 06/09/2011 [facility]. BREAST TISSUE:The tissue of both breasts is [...] exam. Electronically signed by: Bethany dewitt/tiffany:02/18/2018 16:38:29 Sight Effects Specialist: Natasha ALMANZAR(Aguilar)(M), [facility] letter sent: Normal Exam Reading location: [facility] BI-RADS: 1 Negative us Sonia Gonzalez MD IMG MAMMO ORDERABLES Fin al Result from Last 3 Months or Most Recently Relevant to Health Maintenance Insurance [employer]ICAID [employer] Care Teams Iron Launder Operator Relationship Specialty Start Date End Date Driss Lee MD [address] [place] [address] PCP - General Family Medicine 02/18/18
== END 2024-11-10 13:51 | disposition home or self-care (01) ==
LOC: CHSIMG 13:53
PROVIDERS: PCP Nurse Practitioner Family
DX: K59.04 Chronic idiopathic constipation (principal)
CPT/HCPCS: 74018